=== PATIENT | male | born 1995 | race Two or more races ===

== ENCOUNTER 2017-11-12 15:59 | Emergency (ER) | payer OTHER ==
[2017-11-12 16:05] VITALS: BMI 24.3
--- NOTE | 2017-11-12 17:00 | PDOC ---
History of Present Illness - General Chief Complaint: Nausea/Vomiting Stated Complaint: ABDOMINAL PAIN, VOMITING Time Seen by Provider: 11/12/17 16:13 - History of Present Illness Initial Comments: 11/12/17 16:55 22 yo M with no significant pmh who p/w vomitting. Patient reports acute onset of non bilious, non bloody emesis this AM x 5, decreased PO intake, and diffuse , crampy abdominal pain. 1 episode of loose, watery stool this AM. Aggravated with PO intake. Denies alleviators. Denies PO medication intake. Reports drinking alcohol and eating at friends house yesterday evening. Denies F/C, CP, SOB, abdominal pain, constipation, urinary complaints, weakness , lightheadedness, sensory changes. PMHx: as noted above. Denies surgical history. ROS: as noted above SHx: Etoh use yesterday 1 beer at friends home. Denies recent traveling, hiking , camping, sick contacts, or pets. Denies tobacco or IVDA. Past History - Past Medical History Allergies/Adverse Reactions: Allergies Allergy/AdvReac Type Severity Reaction Status Date / Time No Allergy Information Allergy Verified 11/12/17 16:05 Available Home Medications: Ambulatory Orders Ondansetron HCl [Zofran] 4 mg PO PRN PRN 15 Days #30 tablet MDD 2 tab 11/12/17 COPD: No - Suicide/Smoking/Psychosocial Hx Smoking History: Never smoked Review of Systems - Review of Systems Comments:: 11/12/17 16:54 GENERAL/CONSTITUTIONAL: No fever or chills. No weakness. HEAD, EYES, EARS, NOSE AND THROAT: No change in vision. No ear pain or discharge. No sore throat. CARDIOVASCULAR: No chest pain or shortness of breath RESPIRATORY: No cough, wheezing, or hemoptysis. GASTROINTESTINAL: + nausea, vomiting, diarrhea. No constipation. GENITOURINARY: No dysuria, frequency, or change in urination. MUSCULOSKELETAL: No joint or muscle swelling or pain. No neck or back pain. SKIN: No rash NEUROLOGIC: No headache, vertigo, loss of consciousness, or change in strength/ sensation. ENDOCRINE: No increased thirst. No abnormal weight change HEMATOLOGIC/LYMPHATIC: No anemia, easy bleeding, or history of blood clots. ALLERGIC/IMMUNOLOGIC: No hives or skin allergy. *Physical Exam - Vital Signs Last Vital Signs Temp Pulse Resp BP Pulse Ox 98.1 F 87 18 142/92 99 11/12/17 16:01 11/12/17 16:01 11/12/17 16:01 11/12/17 16:01 11/12/17 16:01 - Physical Exam Comments: 11/12/17 16:55 GENERAL: Awake, alert, and fully oriented, in no acute distress HEAD: No signs of trauma, normocephalic, atraumatic EYES: PERRLA, EOMI, sclera anicteric, conjunctiva clear ENT: Hearing grossly normal, nares patent, oropharynx clear without exudates. Moist mucosa NECK: Normal ROM, supple, no lymphadenopathy, JVD, or masses LUNGS: No distress, speaks full sentences, clear to auscultation bilaterally HEART: Regular rate and rhythm, normal S1 and S2, no murmurs, rubs or gallops, peripheral pulses normal and equal bilaterally. ABDOMEN: Soft, nontender, normoactive bowel sounds. No guarding, no rebound. No masses. Neg CVA ttp. EXTREMITIES : Normal inspection, Normal range of motion, no edema. No clubbing or cyanosis. SKIN: Warm, Dry, normal turgor, no rashes or lesions noted ED Treatment Course - LABORATORY CBC & Chemistry Diagram: 11/12/17 17:10 11/12/17 17:10 Medical Decision Making - Medical Decision Making 11/12/17 18:00 22 yo M with no significant pmh who p/w vomiting, loose watery stool, and generalized abdominal x 1 day. VSS, AF, A&Ox3. Abdominal exam unremarkable. Patient presentation most likely 2/2 acute gastroenteritis, vs. less likely biliary pathology, vascular pathology, colitis, diverticulitis, appendicitis, or urinary pathology ( pyelonephritis, nephrolithiais). Will assess for electrolyte abnml, toxic or metabolic derangements,acid-base disturbances, or underlying infection. Anti-emetic control, IVF resuscitate, and pain control. ED Course: CBC, CMP, Lipase UA, Urine Cx. Zofran, Famotidine, Tylenol, NS 11/12/17 18:03 WBC: 15. 6 CMP: Unremarkable UA: Neg 11/12/17 18:56 Patient tolerating PO intake and symptoms improved. Discharge with zofran sent to pharmacy. F/u with PMD with return precautions. *DC/Admit/Observation/Transfer Diagnosis at time of Disposition: Abdominal pain with vomiting - Discharge Dispostion Disposition: HOME Decision to Admit order: No - Prescriptions Prescriptions: Ondansetron HCl [Zofran] 4 mg PO PRN PRN 15 Days #30 tablet MDD 2 tab PRN Reason: Nausea - Referrals Referrals: Soumya Mena [Primary Care Provider] - - Patient Instructions Printed Discharge Instructions: DI for Vomiting -- Adult Additional Instructions: Please return to the emergency department with any new or worsening symptoms or concerns. Please follow up with your primary care physician within 72 hours. Please take Zofran as needed for nausea and vomiting up to two times per day. - Post Discharge Activity - Attestations Physician Attestion: 11/12/17 18:55 I attest to the information provided in this note.
[2017-11-12] MEDS ORDERED: ACETAMINOPHEN 1000 MG/100 ML VIAL (NON FORMULARY) IVPB ONE (17:08)
[2017-11-12] MEDS ORDERED: MAG HYDROX/AL HYDROX/SIMETH 30 ML UNIT-DOSE CUP PO ONE (17:08)
[2017-11-12] MEDS ORDERED: SODIUM CHLORIDE 1,000 ML IV STA (17:08)
[2017-11-12] MEDS ORDERED: ONDANSETRON 4 MG/2 ML VIAL IVPB ONE (17:08)
[2017-11-12] MEDS ORDERED: FAMOTIDINE IV 20 MG/12 ML VIAL IVPUSH ONE (17:08)
[2017-11-12 17:14] LABS: BASO % 0.2 % (0-2.0); EOS % 0.2 % (0-4.5); HEMATOCRIT 50.8 % (35.4-49); HEMOGLOBIN 16.7 GM/dL (11.7-16.9); MEAN CELL VOLUME 78.9 fl (80-96); MEAN PLT VOLUME 9.4 fl (7.5-11.1); MONO % 8.8 % (3.8-10.2); NEUT % 82.8 % (42.8-82.8); PLATELET COUNT 290 K/MM3 (134-434); RBC 6.44 M/mm3 (4.00-5.60); RDW 13.3 % (11.9-15.9); WHITE BLOOD COUNT 15.6 K/mm3 (4.0-10.0)
[2017-11-12] MEDS ORDERED: MAG HYDROX/AL HYDROX/SIMETH 30 ML UNIT-DOSE CUP ONE (17:16)
[2017-11-12] MEDS ORDERED: ACETAMINOPHEN INJECTION 100 ML IVPB ONE (17:16)
[2017-11-12] MEDS ORDERED: ONDANSETRON 4 MG/2 ML VIAL ONE (17:16)
[2017-11-12] MEDS ORDERED: FAMOTIDINE 20 MG/50 ML IVPB 20 MG/50 ML MG IVPB ONE (17:16)
[2017-11-12 17:26] LABS: URINE APPEARANCE CLEAR; URINE BILIRUBIN NEGATIVE (<2.0 mg/dL); URINE COLOR YELLOW; URINE GLUCOSE (UA) NEGATIVE (NEGATIVE); URINE KETONE TRACE (NEGATIVE); URINE LEUK ESTERASE NEGATIVE (NEGATIVE); URINE NITRITE NEGATIVE (NEGATIVE); URINE PROTEIN NEGATIVE (NEGATIVE); URINE UROBILINOGEN NEGATIVE mg/dL (0.2-1.0)
[2017-11-12 17:49] LABS: ALBUMIN 4.8 g/dl (3.4-5.0); ANION GAP 10 (8-16); BILIRUBIN,TOTAL 0.7 mg/dL (0.2-1.0); BLOOD UREA NITROGEN 8 mg/dL (7-18); CALCIUM 9.4 mg/dL (8.5-10.1); CHLORIDE 106 mmol/L (98-107); CO2 23 mmol/L (21-32); CREATININE 0.9 mg/dL (0.7-1.3); GLUCOSE,RANDOM 107 mg/dL (74-106); POTASSIUM 4.1 mmol/L (3.5-5.1); SGOT/AST 37 U/L (15-37); SGPT/ALT 100 U/L (12-78); SODIUM 139 mmol/L (136-145); TOT PROT 8.2 g/dl (6.4-8.2)
[2017-11-12 17:50] LABS: ALK PHOS 81 U/L (45-117)
--- NOTE | 2017-11-12 17:51 | PDOC ---
Attending Attestation - Resident Resident Name: Tavon Baugh - ED Attending Attestation I have performed the following: I have examined & evaluated the patient, The case was reviewed & discussed with the resident, I agree w/resident's findings & plan, Exceptions are as noted - HPI HPI: 11/12/17 17:51 22 yo vomiting ,diarrhea since this am. Pt also was drinking alcohol last night 11/12/17 17:52 11/12/17 18:32 slender 22 yo male with no significant pat medical or surgical history head ncat neck supple lungs cta b/l cvs [id number] abd flat,nontrender ext no edema neuro ambulatory ,no focal neuro deficits - Physicial Exam PE: 11/12/17 18:01 wnwd 22 yo male head ncat lungs cta b/l cvs [id number] abd nontender ext no e/c/c skin warm and dry neuro axox3 - Medical Decision Making 11/12/17 18:35 pt feels much better, no abd pain and does not feel nauseated now
[2017-11-12 19:21] VITALS: BP 118/74; PULSE 84; TEMP 97.8
== END 2017-11-12 19:00 | disposition home or self-care (01) ==
LOC: JER 15:59
PROC: 3E033GC Introduction of Other Therapeutic Substance into Peripheral Vein, Percutaneous Approach (ICD-10-PCS; principal; 2017-11-12)
PROC: 3E033GC Introduction of Other Therapeutic Substance into Peripheral Vein, Percutaneous Approach (ICD-10-PCS; 2017-11-12)
PROC: 3E033GC Introduction of Other Therapeutic Substance into Peripheral Vein, Percutaneous Approach (ICD-10-PCS; 2017-11-12)
DX: R10.84 Generalized abdominal pain (principal)
CPT/HCPCS: 36415; 80053; 81003; 83690; 85025; 87086; 96374; 96375; 99282-25; J0131; J7030

== ENCOUNTER 2018-08-04 12:37 | Emergency (ER) | payer OTHER ==
[2018-08-04 12:51] VITALS: BP 91/61; PULSE 110; TEMP 99.6; BMI 30.4
--- NOTE | 2018-08-04 13:37 | PDOC ---
History of Present Illness - General Chief Complaint: Respiratory Stated Complaint: COLD SYMPTOMS Time Seen by Provider: 08/04/18 13:20 History Source: Patient Exam Limitations: No Limitations - History of Present Illness Initial Comments: 08/04/18 13:27 States onset of fevers, moist nonproductive cough, body aches, runny nose and sore throat pain 2 days. Timing/Duration: reports: just prior to arrival Past History - Travel Traveled outside of the country in the last 30 days: No Close contact w/someone who was outside of country & ill: No - Past Medical History Allergies/Adverse Reactions: Allergies Allergy/AdvReac Type Severity Reaction Status Date / Time No Allergy Information Allergy Verified 08/04/18 12:51 Available Home Medications: Ambulatory Orders Oseltamivir Phosphate [Tamiflu -] 75 mg PO BID #10 capsule 08/04/18 COPD: No - Suicide/Smoking/Psychosocial Hx Smoking History: Never smoked Review of Systems - Review of Systems Able to Perform ROS?: Yes Is the patient limited Mozambican proficient: Yes Constitutional: Yes: Symptoms Reported, See HPI, Fever, Malaise HEENTM: Yes: Symptoms Reported, See HPI, Nose Pain, Nose Congestion, Throat Pain Respiratory: Yes: Symptoms reported, See HPI, Cough. No: Wheezing Cardiac (ROS): No: Symptoms Reported Musculoskeletal: Yes: Symptoms Reported Integumentary: Yes: See HPI. No: Symptoms Reported All Other Systems: Reviewed and Negative *Physical Exam - Vital Signs Last Vital Signs Temp Pulse Resp BP Pulse Ox 99.6 F 110 H 20 91/61 100 08/04/18 12:45 08/04/18 12:45 08/04/18 12:45 08/04/18 12:45 08/04/18 12:45 - Physical Exam Comments: 08/04/18 13:37 GENERAL: [The child is awake, alert, and appropriately interactive.] EYES: [The pupils are equal, round, and reactive to light, with clear, conjunctiva.but glassy] NOSE: [The nose with clear drainage EARS: [The ear canals and tympanic membranes are congested but landmarks easily visualed ] THROAT: [The oropharynx is clear with erythema, no exudates. The mucous membranes are moist.] NECK: [The neck is supple with mildly tender adenopathy, no menigemous] CHEST: [The lungs are coarse but clear without crackles, or wheezes.] HEART: [Heart is regular rhythm, with normal S1 and S2, no murmurs.] ABDOMEN: [The abdomen is soft and nontender with normal bowel sounds. There is no organomegaly and no mass. There is no guarding or rebound.] EXTREMITIES: [Extremities are normal.] NEURO: [Behavior is normal for age.cranky but easily,m Tone is normal.] SKIN: [Skin is unremarkable without rash or swelling. There is no bruising, and there are no other signs of injury.] 08/04/18 13:41 General Appearance: Yes: Nourished, Appropriately Dressed HEENT: positive: TMs Normal Neck: positive: Tender, Supple. negative: Lymphadenopathy (R) Moderate Sedation - Procedure Monitoring Vital Signs: Procedure Monitoring Vital Signs Temperature 99.6 F 08/04/18 12:45 Pulse Rate 110 H 08/04/18 12:45 Respiratory Rate 20 08/04/18 12:45 Blood Pressure 91/61 08/04/18 12:45 O2 Sat by Pulse Oximetry (%) 100 08/04/18 12:45 Progress Note - Progress Note Progress Note: Upper respiratory infection, with clinical evidence of influenza. We'll treat with Tamiflu is within the window *DC/Admit/Observation/Transfer Diagnosis at time of Disposition: Influenzal acute upper respiratory infection - Discharge Dispostion Disposition: HOME Condition at time of disposition: Stable Decision to Admit order: No - Referrals - Patient Instructions Printed Discharge Instructions: DI for Viral Upper Respiratory Infection -- Adult Additional Instructions: Rest, drink lots of fluids: Teas, water, soups, Pedialyte Saltwater gargles Steamy showers/seem to face break up mucus Old-fashioned treatments help! Avoid contact with others until fevers and cough resolved as this is very contagious Lots of handwashing and good hygiene Continue [id number] medications for symptomatic relief Tylenol or Motrin for fever and pain Take all of Tamiflu as directed: 1 tab every 12 hours for 5 days Followup with private physician in one to 2 days as needed or if worsening Return to emergency department for worsened symptoms, fevers, dehydration Influenza takes between 5 and 7 days for resolution To not participate in any activity, work, or school until fevers and cough are gone for at least one day - Post Discharge Activity Forms/Work/School Notes: Back to Work
== END 2018-08-04 13:45 | disposition home or self-care (01) ==
LOC: JERFT 12:37
DX: J11.1 Influenza due to unidentified influenza virus with other respiratory manifestations (principal)
CPT/HCPCS: 99281-25

== ENCOUNTER 2019-01-18 11:26 | Inpatient (IN) | payer OTHER ==
[2019-01-18] MEDS ORDERED: SODIUM CHLORIDE 0.9% 1000 ML INFUS.BAG IV ONE ×2 (11:44→12:27)
[2019-01-18 12:14] LABS: BASO % 0.3 % (0-2.0); EOS % 2.1 % (0-4.5); HEMATOCRIT 51.3 % (35.4-49); HEMOGLOBIN 18.1 GM/dL (11.7-16.9); LYMPH % 30.9 % (8-40); MCH 27.1 pg (25.7-33.7); MCHC 35.2 g/dl (32.0-35.9); MEAN PLT VOLUME 10.1 fl (7.5-11.1); MONO % 11.1 % (3.8-10.2); NEUT % 55.6 % (42.8-82.8); PLATELET COUNT 323 K/MM3 (134-434); RBC 6.66 M/mm3 (4.00-5.60); RDW 12.7 % (11.9-15.9); WHITE BLOOD COUNT 4.5 K/mm3 (4.0-10.0)
[2019-01-18 12:16] LABS: INR 1.03 (0.83-1.09); PROTHROMBIN TIME (PATIENT) 12.1 SEC (9.7-13.0)
[2019-01-18 12:29] LABS: ALBUMIN 4.9 g/dl (3.4-5.0); ALK PHOS 111 U/L (45-117); ANION GAP 13 MMOL/L (8-16); BILIRUBIN,TOTAL 1.6 mg/dL (0.2-1); BLOOD UREA NITROGEN 14.1 mg/dL (7-18); CALCIUM 10.3 mg/dL (8.5-10.1); CHLORIDE 102 mmol/L (98-107); CO2 25 mmol/L (21-32); POTASSIUM 5.3 mmol/L (3.5-5.1); SGOT/AST 32 U/L (15-37); SGPT/ALT 57 U/L (13-61); SODIUM 140 mmol/L (136-145); TOT PROT 8.8 g/dl (6.4-8.2)
[2019-01-18] MEDS ORDERED: SODIUM CHLORIDE 1,000 ML IV STA (12:32)
[2019-01-18 12:35] LABS: GLUCOSE,RANDOM 378 mg/dL (74-106)
[2019-01-18 12:43] LABS: ACETONE SERUM POSITIVE SMALL 1+ (NEGATIVE)
--- NOTE | 2019-01-18 12:54 | PDOC ---
History of Present Illness - General Chief Complaint: Weakness Stated Complaint: DEHYDRATION Time Seen by Provider: 01/18/19 11:42 History Source: Patient Exam Limitations: No Limitations - History of Present Illness Initial Comments: 01/18/19 12:52 23M with no PMH presents to the ER with complaints of weakness and dehydration. The patient states that over the past 3 weeks, he's been feeling more and more thirsty, drinking more and more water, as well as having frequent urination. He denies dysuria, hematuria, family hx of diabetes, recent illness or stressors, CP, SOB, fever, chills, nausea, or vomiting. He denies abd pain. He has never had this before. Past History - Past Medical History Allergies/Adverse Reactions: Allergies Allergy/AdvReac Type Severity Reaction Status Date / Time aspirin Allergy Verified 01/18/19 11:38 Home Medications: Ambulatory Orders NK [No Known Home Medication] 01/18/19 COPD: No Diabetes: Yes (UNSURE) - Suicide/Smoking/Psychosocial Hx Smoking History: Never smoked Hx Alcohol Use: No Drug/Substance Use Hx: No Review of Systems - Review of Systems Able to Perform ROS?: Yes Comments:: 01/18/19 12:53 GENERAL/CONSTITUTIONAL: No fever or chills. No weakness. HEAD, EYES, EARS, NOSE AND THROAT: No change in vision. No ear pain or discharge. No sore throat. CARDIOVASCULAR: No chest pain, palpitations, or lightheadedness. RESPIRATORY: No cough, wheezing, shortness of breath, or hemoptysis. GASTROINTESTINAL: No abdominal pain, nausea, vomiting, diarrhea, or constipation. GENITOURINARY: No dysuria, frequency, hematuria, or change in urination. MUSCULOSKELETAL: No joint or muscle swelling or pain. No neck or back pain. SKIN: No rash or lesions. NEUROLOGIC: No headache, numbness, tingling, focal weakness, loss of consciousness, or change in strength/sensation. ENDOCRINE: + for increased thirst and weight loss. HEMATOLOGIC/LYMPHATIC: No anemia, easy bleeding, or history of blood clots. ALLERGIC/IMMUNOLOGIC: No hives or skin allergy. Is the patient limited Croatian proficient: No *Physical Exam - Vital Signs Last Vital Signs Temp Pulse Resp BP Pulse Ox 98.6 F 58 L 19 128/83 99 01/18/19 11:50 01/18/19 11:50 01/18/19 11:50 01/18/19 11:50 01/18/19 11:50 - Physical Exam Comments: 01/18/19 12:53 GENERAL: Well developed, well nourished. Awake and alert. No acute distress. HEENT: Normocephalic, atraumatic. Hearing grossly normal. Moist mucous membranes. PERRLA, EOMI. No conjunctival pallor. Sclera are non-icteric. NECK: Supple. Full ROM. No JVD. CARDIOVASCULAR: Regular rate and rhythm. No murmurs, rubs, or gallops. PULMONARY: No evidence of respiratory distress. Lungs clear to auscultation bilaterally. No wheezing, rales or rhonchi. ABDOMINAL: Soft. Non-tender. Non-distended. No rebound or guarding. GENITOURINARY: No CVA tenderness bilaterally. MUSCULOSKELETAL: Normal range of motion at all joints. No bony deformities or tenderness. EXTREMITIES: No cyanosis. No clubbing. No edema. No calf tenderness or swelling. SKIN: Warm and dry. Normal capillary refill. No rashes. No jaundice. NEUROLOGICAL: Alert, awake, appropriate. Cranial nerves 2-12 grossly intact. Normal speech. Gait is normal without ataxia. PSYCHIATRIC: Cooperative. Good eye contact. Appropriate mood and affect. ED Treatment Course - LABORATORY CBC & Chemistry Diagram: 01/18/19 11:48 01/18/19 11:48 - ADDITIONAL ORDERS Additional order review: Laboratory Results 01/18/19 01/18/19 01/18/19 11:48 11:48 11:48 PT with INR 12.10 INR 1.03 Sodium 140 Potassium 5.3 H Chloride 102 Carbon Dioxide 25 Anion Gap 13 BUN 14.1 Creatinine 1.0 Est GFR (CKD-EPI)AfAm 124.14 Est GFR (CKD-EPI)NonAf 107.11 Random Glucose 378 H* Calcium 10.3 H Total Bilirubin 1.6 H AST 32 ALT 57 Alkaline Phosphatase 111 Creatine Kinase 126 Total Protein 8.8 H Albumin 4.9 Acetone, Qual Positive small 1+ 01/18/19 11:48 RBC 6.66 H MCV 77.0 L MCHC 35.2 RDW 12.7 MPV 10.1 Neutrophils % 55.6 D Lymphocytes % 30.9 D Monocytes % 11.1 H Eosinophils % 2.1 D Basophils % 0.3 - Medications Given in the ED: ED Medications Discontinued Medications Generic Name Dose Route Start Last Admin Trade Name Kusum PRN Reason Stop Dose Admin Sodium Chloride 1,000 ml 01/18/19 11:44 01/18/19 11:57 Normal Saline - IV 01/18/19 11:45 1,000 ml ONCE ONE Administration Medical Decision Making - Medical Decision Making 01/18/19 12:53 23M with no PMH who presents with polyuria, polydipsia, and weight loss, concerning for new onset diabetes. Pt is requesting "lots and lots of water". Will obtain labs including VBG and acetone and will hydrate pt. Pending labs and imaging. 01/18/19 13:19 Labs indicate new onset diabetes w/o DKA (no gap, normal pH). Will admit for new onset diabetes. Pt endorsed to Dr. Majano for admission. *DC/Admit/Observation/Transfer Diagnosis at time of Disposition: Diabetes mellitus, new onset - Discharge Dispostion Condition at time of disposition: Guarded Decision to Admit order: Yes - Referrals Referrals: Soumya Mena [Primary Care Provider] - - Patient Instructions - Post Discharge Activity
[2019-01-18 13:00] LABS: URINE APPEARANCE CLEAR; URINE BILIRUBIN NEGATIVE (NEGATIVE); URINE COLOR YELLOW; URINE GLUCOSE (UA) 3+ (NEGATIVE); URINE KETONE 3+ (NEGATIVE); URINE LEUK ESTERASE TRACE (NEGATIVE); URINE NITRITE NEGATIVE (NEGATIVE); URINE PROTEIN 2+ (NEGATIVE); URINE UROBILINOGEN 0.2 mg/dL (0.2-1.0)
[2019-01-18] MEDS ORDERED: INSULIN REGULAR HUMAN 100 UNITS/ML *VIAL SQ ONE (13:03)
--- NOTE | 2019-01-18 13:07 | PDOC ---
Documentation entered by Betty Eddy SCRIBE, acting as scribe for Onesimo Carbone MD. Onesimo Carbone MD: This documentation has been prepared by the Surjit mock Brenda, SCRIBE, under my direction and personally reviewed by me in its entirety. I confirm that the documentation accurately reflects all work, treatment, procedures, and medical decision making performed by me. Attending Attestation - Resident Resident Name: Elvis Lewis - ED Attending Attestation I have performed the following: I have examined & evaluated the patient, The case was reviewed & discussed with the resident, I agree w/resident's findings & plan, Exceptions are as noted - HPI HPI: 01/18/19 12:34 The patient is a 23 year old male, with no significant PMH who presents to the emergency department with 3 weeks of weakness and feelings of dehydration. The patient reports that he has been drinking fluids more often and urinating more frequently, but has still been feeling dehydrated. He also notes that in early November, he weighed himself to be 190 lbs and yesterday he was 167 lbs, and when testing his blood glucose yesterday he was found to be at 369. The patient denies a change in appetite. Denies blurry visions, chest pain, shortness of breath, headache and dizziness. Denies fever, nausea, vomiting, diarrhea and constipation. Denies dysuria and hematuria. Denies any other symptoms. Allergies: Aspirin Past surgical history: Denies any surgical history. PCP: Soumya Mena - Physicial Exam PE: 01/18/19 12:35 GENERAL: Awake, alert, and fully oriented, in no acute distress HEAD: No signs of trauma EYES: PERRLA, EOMI, sclera anicteric, conjunctiva clear ENT: (+) Dry mucous membranes. Auricles normal inspection, hearing grossly normal, nares patent. NECK: Normal ROM, supple, no lymphadenopathy, JVD, or masses LUNGS: Breath sounds equal, clear to auscultation bilaterally. No wheezes, and no crackles HEART: Regular rate and rhythm, normal S1 and S2, no murmurs, rubs or gallops ABDOMEN: Soft, nontender. No guarding, no rebound. No masses EXTREMITIES: Normal range of motion, no edema. No clubbing or cyanosis. No cords, erythema, or tenderness NEUROLOGICAL: Cranial nerves II through XII grossly intact. Normal speech. SKIN: Warm, Dry, normal turgor, no rashes or lesions noted. - Medical Decision Making 01/18/19 13:06 A portion of this note was written by my scribe, under my supervision. Vital Signs Temp Pulse Resp BP Pulse Ox 98.6 F 58 L 19 128/83 99 01/18/19 11:50 01/18/19 11:50 01/18/19 11:50 01/18/19 11:50 01/18/19 11:50 23 year old M presents with hyperglycemia. CBC, BMP 01/18/19 11:48 01/18/19 11:48 CMP Sodium 140 mmol/L (136-145) 01/18/19 11:48 Potassium 5.3 mmol/L (3.5-5.1) H 01/18/19 11:48 Chloride 102 mmol/L (98-107) 01/18/19 11:48 Carbon Dioxide 25 mmol/L (21-32) 01/18/19 11:48 Anion Gap 13 MMOL/L (8-16) 01/18/19 11:48 BUN 14.1 mg/dL (7-18) 01/18/19 11:48 Creatinine 1.0 mg/dL (0.55-1.3) 01/18/19 11:48 Est GFR (CKD-EPI)AfAm 124.14 01/18/19 11:48 Est GFR (CKD-EPI)NonAf 107.11 01/18/19 11:48 Random Glucose 378 mg/dL (74-106) H* 01/18/19 11:48 Calcium 10.3 mg/dL (8.5-10.1) H 01/18/19 11:48 Total Bilirubin 1.6 mg/dL (0.2-1) H 01/18/19 11:48 AST 32 U/L (15-37) 01/18/19 11:48 ALT 57 U/L (13-61) 01/18/19 11:48 Alkaline Phosphatase 111 U/L (45-117) 01/18/19 11:48 Creatine Kinase 126 U/L (26-308) 01/18/19 11:48 Total Protein 8.8 g/dl (6.4-8.2) H 01/18/19 11:48 Albumin 4.9 g/dl (3.4-5.0) 01/18/19 11:48 No elevated AG but elevated glucose. Will not treat as DKA. Pt with newly diagnosed diabetes, likely type 1 vs type 2. Insulin and admission to the hospital. Heart Score/ECG Review #1 ECG reviewed & interpreted by me at: 12:35 01/18/19 12:58 NSR 51, no std/eloisa, TWI III, no brugada, no HOCM, no WPW, QTC 412 msec
[2019-01-18 13:17] LABS: VENOUS PC02 47.1 mmHg (41-51); VENOUS PH 7.35 (7.31-7.41); VENOUS PO2 51.1 mmHg (30-40)
[2019-01-18] MEDS ORDERED: INSULIN REGULAR HUMAN 100 UNITS/ML *VIAL ONE (13:30)
[2019-01-18 14:04] LABS: EPI CELLS 2.6 /HPF (0-5/HPF); HYALINE CASTS 2.61 /lpf (0-8); URINE BACTERIA 3.4 /hpf (NEGATIVE); URINE RBC 6.2 /hpf (0-4); URINE WBC 33.1 /hpf (0-5)
--- NOTE | 2019-01-18 15:09 | HP ---
Admitting History and Physical - Admission Chief Complaint: came in for polydipsia and polyuria for 3 weeks History of Present Illness: The patient is a 23 year old male, with no significant PMH who presents to the emergency department with 3 weeks of weakness and feelings of dehydration. The patient reports that he has been drinking fluids more often and urinating more frequently, but has still been feeling dehydrated. He also notes that in early November, he weighed himself to be 190 lbs and yesterday he was 167 lbs, and when testing his blood glucose yesterday he was found to be at 369. The patient denies a change in appetite. Denies blurry visions, chest pain, shortness of breath, headache and dizziness. Denies fever, nausea, vomiting, diarrhea and constipation. Denies dysuria and hematuria. Denies any other symptoms. Allergies: Aspirin in ER foudn to have bgm in 300 and ketones in urine got ivf and 5 units of insulin History Source: Patient - Smoking History Smoking history: Never smoked - Alcohol/Substance Use Hx Alcohol Use: No Home Medications - Allergies Allergies/Adverse Reactions: Allergies Allergy/AdvReac Type Severity Reaction Status Date / Time aspirin Allergy Verified 01/18/19 11:38 - Home Medications Home Medications: Ambulatory Orders NK [No Known Home Medication] 01/18/19 Family Disease History - Family Disease History Family Disease History: Diabetes: Mother Physical Examination Vital Signs: Vital Signs Temperature 98.6 F 01/18/19 11:50 Pulse Rate 65 01/18/19 13:49 Respiratory Rate 18 01/18/19 13:49 Blood Pressure 118/66 01/18/19 13:49 O2 Sat by Pulse Oximetry (%) 98 01/18/19 13:49 Labs: CBC, BMP 01/18/19 11:48 01/18/19 11:48 Problem List - Problems (1) Diabetes mellitus, new onset Assessment/Plan: ivf metformin bid endocrine consult bgm sliding scale diabetic diet cbc is indicative of dehydration and so is the K 5.3 will repeat labs early ambulation Code(s): E11.9 - TYPE 2 DIABETES MELLITUS WITHOUT COMPLICATIONS
--- NOTE | 2019-01-18 15:18 | CONSULT ---
Consult Consult Specialty:: endocrine Referred by:: dr.saba ruiz Reason for Consultation:: new onset dm2 - History of Present Illness Chief Complaint: high sugars weight loss History of Present Illness: 23M with no PMH presents to the ER with complaints of weakness and dehydration. The patient states that over the past 3 weeks, he's been feeling more and more thirsty, drinking more and more water, as well as having frequent urination. He denies dysuria, hematuria, family hx of diabetes, recent illness or stressors, CP, SOB, fever, chills, nausea, or vomiting.his mom has dm and controlling it with diet and pills,he has been losing weight and is unsure why was told it was from hot weather.he lost close to 15 lbs. - Alcohol/Substance Use Hx Alcohol Use: No - Smoking History Smoking history: Never smoked Home Medications - Allergies Allergies/Adverse Reactions: Allergies Allergy/AdvReac Type Severity Reaction Status Date / Time aspirin Allergy Verified 01/18/19 11:38 - Home Medications Home Medications: Ambulatory Orders NK [No Known Home Medication] 01/18/19 Family Disease History - Family Disease History Family Disease History: Diabetes: Mother Review of Systems - Review of Systems Constitutional: reports: Lethargy, Loss of Appetite, Weakness Eyes: reports: Blurred Vision HENT: reports: No Symptoms Neck: reports: No Symptoms Cardiovascular: reports: No Symptoms Respiratory: reports: No Symptoms Gastrointestinal: reports: No Symptoms Genitourinary: reports: Frequency Breasts: reports: No Symptoms Reported Musculoskeletal: reports: No Symptoms Integumentary: reports: No Symptoms Neurological: reports: No Symptoms Physical Exam Vital Signs: Vital Signs Temperature 98.6 F 01/18/19 11:50 Pulse Rate 65 01/18/19 13:49 Respiratory Rate 18 01/18/19 13:49 Blood Pressure 118/66 01/18/19 13:49 O2 Sat by Pulse Oximetry (%) 98 01/18/19 13:49 Constitutional: Yes: Anxious Eyes: Yes: EOM Intact HENT: Yes: Normocephalic Neck: Yes: Trachea Midline Cardiovascular: Yes: Regular Rate and Rhythm Respiratory: Yes: CTA Bilaterally Gastrointestinal: Yes: Normal Bowel Sounds ...Rectal Exam: Yes: Deferred Renal/: Yes: WNL Breast(s): Yes: WNL Musculoskeletal: Yes: WNL Extremities: Yes: WNL Edema: No Integumentary: Yes: WNL Neurological: Yes: Alert, Oriented Labs: CBC, BMP 01/18/19 11:48 01/18/19 11:48 Problem List - Problems (1) Diabetes mellitus, new onset Code(s): E11.9 - TYPE 2 DIABETES MELLITUS WITHOUT COMPLICATIONS (2) Influenzal acute upper respiratory infection Code(s): J11.1 - FLU DUE TO UNIDENTIFIED INFLUENZA VIRUS W OTH RESP MANIFEST Assessment/Plan Current Active Problems Diabetes mellitus, new onset (Acute) Abnormal Lab Results 01/18/19 01/18/19 01/18/19 11:48 11:48 12:34 RBC 6.66 H Hgb 18.1 H Hct 51.3 H MCV 77.0 L Monocytes % 11.1 H POC VBG pO2 VBG O2 Sat (Andi) Potassium 5.3 H Random Glucose 378 H* Calcium 10.3 H Total Bilirubin 1.6 H Total Protein 8.8 H Urine Protein 2+ H Urine Glucose (UA) 3+ H Urine Ketones 3+ H Urine Blood 1+ H 01/18/19 13:08 RBC Hgb Hct MCV Monocytes % POC VBG pO2 51.1 H VBG O2 Sat (Andi) 83.7 H Potassium Random Glucose Calcium Total Bilirubin Total Protein Urine Protein Urine Glucose (UA) Urine Ketones Urine Blood Laboratory Results - last 24 hr 01/18/19 01/18/19 01/18/19 11:48 11:48 11:48 WBC 4.5 RBC 6.66 H Hgb 18.1 H Hct 51.3 H MCV 77.0 L MCH 27.1 MCHC 35.2 RDW 12.7 Plt Count 323 MPV 10.1 Absolute Neuts (auto) 2.5 Neutrophils % 55.6 D Lymphocytes % 30.9 D Monocytes % 11.1 H Eosinophils % 2.1 D Basophils % 0.3 Nucleated RBC % 0 PT with INR INR VBG pH POC VBG pCO2 POC VBG pO2 VBG HCO3 VBG O2 Sat (Andi) VBG Base Excess Sodium 140 Potassium 5.3 H Chloride 102 Carbon Dioxide 25 Anion Gap 13 BUN 14.1 Creatinine 1.0 Est GFR (CKD-EPI)AfAm 124.14 Est GFR (CKD-EPI)NonAf 107.11 Random Glucose 378 H* Calcium 10.3 H Total Bilirubin 1.6 H AST 32 ALT 57 Alkaline Phosphatase 111 Creatine Kinase 126 Troponin I < 0.02 Total Protein 8.8 H Albumin 4.9 Urine Color Urine Appearance Urine pH Ur Specific Lolo Urine Protein Urine Glucose (UA) Urine Ketones Urine Blood Urine Nitrite Urine Bilirubin Urine Urobilinogen Ur Leukocyte Esterase Urine WBC (Auto) Urine RBC (Auto) Urine Casts (Auto) U Epithel Cells (Auto) Urine Bacteria (Auto) Acetone, Qual Positive small 1+ 01/18/19 01/18/19 01/18/19 11:48 12:34 13:08 WBC RBC Hgb Hct MCV MCH MCHC RDW Plt Count MPV Absolute Neuts (auto) Neutrophils % Lymphocytes % Monocytes % Eosinophils % Basophils % Nucleated RBC % PT with INR 12.10 INR 1.03 VBG pH 7.35 POC VBG pCO2 47.1 POC VBG pO2 51.1 H VBG HCO3 25.4 VBG O2 Sat (Andi) 83.7 H VBG Base Excess -0.2 Sodium Potassium Chloride Carbon Dioxide Anion Gap BUN Creatinine Est GFR (CKD-EPI)AfAm Est GFR (CKD-EPI)NonAf Random Glucose Calcium Total Bilirubin AST ALT Alkaline Phosphatase Creatine Kinase Troponin I Total Protein Albumin Urine Color Yellow Urine Appearance Clear Urine pH 5.0 Ur Specific Lolo 1.033 Urine Protein 2+ H Urine Glucose (UA) 3+ H Urine Ketones 3+ H Urine Blood 1+ H Urine Nitrite Negative Urine Bilirubin Negative Urine Urobilinogen 0.2 Ur Leukocyte Esterase Trace Urine WBC (Auto) 33.1 Urine RBC (Auto) 6.2 Urine Casts (Auto) 2.61 U Epithel Cells (Auto) 2.6 Urine Bacteria (Auto) 3.4 Acetone, Qual plan: bgm qid novolog scale hba1c diet nutrition levemir 20units daily metformin 1gm bid
[2019-01-18] MEDS: SODIUM CHLORIDE 1,000 ML IV SCH ×2 (15:30→23:47)
[2019-01-18 15:39] VITALS: BMI 26.1
[2019-01-18 17:24] LABS: BASO % 0.6 % (0-2.0); EOS % 1.6 % (0-4.5); HEMATOCRIT 39.7 % (35.4-49); HEMOGLOBIN 13.7 GM/dL (11.7-16.9); LYMPH % 32.8 % (8-40); MCH 26.7 pg (25.7-33.7); MCHC 34.6 g/dl (32.0-35.9); MEAN CELL VOLUME 77.4 fl (80-96); MEAN PLT VOLUME 10.2 fl (7.5-11.1); MONO % 7.8 % (3.8-10.2); NEUT % 57.2 % (42.8-82.8); PLATELET COUNT 220 K/MM3 (134-434); RBC 5.13 M/mm3 (4.00-5.60); RDW 12.6 % (11.9-15.9); WHITE BLOOD COUNT 5.1 K/mm3 (4.0-10.0)
[2019-01-18] MEDS: metFORMIN HCL 500 MG TABLET (FP) PO SCH (17:26)
[2019-01-18] MEDS: INSULIN SLIDING SCALE (NOVOLOG) 1 VIAL SQ SCH ×2 (17:36→21:23)
[2019-01-18 18:08] LABS: ALBUMIN 3.3 g/dl (3.4-5.0); BILIRUBIN,TOTAL 0.7 mg/dL (0.2-1); BLOOD UREA NITROGEN 11.2 mg/dL (7-18); CREATININE 0.9 mg/dL (0.55-1.3); POTASSIUM 3.8 mmol/L (3.5-5.1); TOT PROT 5.6 g/dl (6.4-8.2)
[2019-01-19] MEDS: metFORMIN HCL 500 MG TABLET (FP) PO SCH ×2 (06:22→17:24)
[2019-01-19] MEDS: INSULIN (LEVEMIR) 100 UNITS/ML UNITS SQ SCH (06:23)
[2019-01-19] MEDS: INSULIN SLIDING SCALE (NOVOLOG) 1 VIAL SQ SCH ×4 (06:24→22:16)
[2019-01-19 07:59] LABS: CHOLESTEROL 124 mg/dL (50-200); HDL CHOLESTEROL 23 mg/dL (40-60); TRIGLYCERIDES 155 mg/dL (0-150)
[2019-01-19] MEDS: SODIUM CHLORIDE 1,000 ML IV SCH ×2 (08:12→16:59)
--- NOTE | 2019-01-19 13:26 | PN ---
Progress Note, Physician - Current Medication List Current Medications: Active Medications Sodium Chloride (Normal Saline -) 1,000 mls @ 125 mls/hr IV ASDIR [facility] Last Admin: 01/19/19 08:12 Dose: 125 mls/hr Insulin Aspart (Novolog Vial Sliding Scale -) 1 vial SQ ACHS [facility]; Protocol Last Admin: 01/19/19 11:18 Dose: 6 unit Insulin Detemir (Levemir Vial) 20 units SQ AM [facility] Last Admin: 01/19/19 06:23 Dose: 20 units Metformin HCl (Glucophage -) 500 mg PO BID@0700,1630 [facility] Last Admin: 01/19/19 06:22 Dose: 500 mg - Objective Vital Signs: Vital Signs Temperature 97.7 F 01/19/19 06:00 Pulse Rate 55 L 01/19/19 06:00 Respiratory Rate 18 01/19/19 06:00 Blood Pressure 113/61 01/19/19 06:00 O2 Sat by Pulse Oximetry (%) 98 01/18/19 21:00 Cardiovascular: Yes: Regular Rate and Rhythm Respiratory: Yes: Regular, CTA Bilaterally Gastrointestinal: Yes: Normal Bowel Sounds, Soft Labs: CBC, BMP 01/18/19 16:40 01/18/19 16:40 INR, PTT INR 1.03 (0.83-1.09) 01/18/19 11:48 Problem List - Problems (1) Diabetes mellitus, new onset Assessment/Plan: ivf metformin bid endocrine consult bgm sliding scale diabetic diet cbc is indicative of dehydration and so is the K 5.3 will repeat labs early ambulation Code(s): E11.9 - TYPE 2 DIABETES MELLITUS WITHOUT COMPLICATIONS
--- NOTE | 2019-01-19 14:09 | PN ---
Progress Note (short form) - Note Progress Note: ID consult dictated imp/reccd 23 yo male admitted with new onset DM no signs UTI Urine culture less then 10K group b strep UA negative no need to treat management of DM per PMD please call back if needed
--- NOTE | 2019-01-19 14:46 | CONS ---
INFECTIOUS DISEASE CONSULTATION DATE OF CONSULTATION: DATE OF DICTATION: 01/19/2019 HISTORY: This is a 23-year-old man who came to the ER complaining of weakness. He reports polyuria and polydipsia for the last 3-4 weeks. He has been drinking more water but has continued to feel very weak and dehydrated. He complained of this to his mother, who recommended he come to the emergency room. He has lost about 15 -20 pounds in the last 4-6 weeks as well. He has no fevers or chills. He has no dysuria, no diarrhea, or constipation. He, otherwise, feels well. He is allergic to ASPIRIN. He was found to have a blood glucose of 300 in the ER and ketones in the urine. He got fluids and insulin and was admitted for further evaluation. PAST MEDICAL HISTORY: Unremarkable. ALLERGIES: He is allergic to ASPIRIN. MEDICATIONS: He takes no medications. FAMILY HISTORY: Apparently notable for diabetes in his mother. SOCIAL HISTORY: He lives with his mother and his girlfriend. He works as a tank truck driver. He smokes hookah occasionally. No cigarettes. Rare social alcohol. He denies any drug use. He is followed by Dr. Soumya Mena at [facility]. REVIEW OF SYSTEMS: Unremarkable. He is feeling currently quite well. He is eating. He never had nausea or vomiting. PHYSICAL EXAMINATION: Vital Signs: He is afebrile. Temperature 97.7, pulse is 55, blood pressure 113 /61, respiratory rate 18, saturating 98% on room air. HEENT: He has no thrush. Neck: Supple. Lungs: Clear to auscultation. Heart: Regular rate and rhythm. Abdomen: Soft, nontender. Extremities: Without edema. DIAGNOSTIC DATA: His white count is 5.1, hemoglobin on admission was 18, today is 13.7, platelets are 220, INR 1. His BUN 14, creatinine 1 on admission, today are BUN 11, creatinine 0.9. Glucose of 378 on admission with a hemoglobin A1C of 13. LFTs are normal. Urinalysis is notable for protein, glucose, ketones, and blood. Leukocyte esterase and nitrites were negative. His urine culture, less than 10, 000 group B streptococcus. In summary, this is a young man admitted with diabetes, new onset. He needs plenty of education. I doubt he has a UTI. No need for treatment. Please call back if needed. Deena [id number] MTDD
[2019-01-19 18:14] LABS: HYALINE CASTS 1 /lpf (0-8); URINE APPEARANCE CLEAR; URINE BACTERIA 9.3 /hpf (NEGATIVE); URINE BILIRUBIN NEGATIVE (NEGATIVE); URINE COLOR YELLOW; URINE GLUCOSE (UA) 3+ (NEGATIVE); URINE KETONE TRACE (NEGATIVE); URINE LEUK ESTERASE 1+ (NEGATIVE); URINE NITRITE NEGATIVE (NEGATIVE); URINE PROTEIN NEGATIVE (NEGATIVE); URINE RBC 0 /hpf (0-4); URINE WBC 6 /hpf (0-5)
[2019-01-20] MEDS: SODIUM CHLORIDE 1,000 ML IV SCH ×2 (00:30→08:47)
[2019-01-20] MEDS: metFORMIN HCL 500 MG TABLET (FP) PO SCH ×2 (06:41→17:00)
[2019-01-20] MEDS: INSULIN (LEVEMIR) 100 UNITS/ML UNITS SQ SCH (06:42)
[2019-01-20] MEDS: INSULIN SLIDING SCALE (NOVOLOG) 1 VIAL SQ SCH ×4 (06:42→23:41)
[2019-01-20 08:30] LABS: BASO % 0.6 % (0-2.0); EOS % 3.2 % (0-4.5); HEMATOCRIT 39.1 % (35.4-49); HEMOGLOBIN 13.3 GM/dL (11.7-16.9); LYMPH % 45.3 % (8-40); MCH 26.8 pg (25.7-33.7); MCHC 34.1 g/dl (32.0-35.9); MEAN CELL VOLUME 78.6 fl (80-96); MEAN PLT VOLUME 9.9 fl (7.5-11.1); MONO % 7.5 % (3.8-10.2); NEUT % 43.4 % (42.8-82.8); PLATELET COUNT 182 K/MM3 (134-434); RBC 4.97 M/mm3 (4.00-5.60); RDW 12.6 % (11.9-15.9); WHITE BLOOD COUNT 3.7 K/mm3 (4.0-10.0)
[2019-01-20 08:33] LABS: BILIRUBIN,TOTAL 0.7 mg/dL (0.2-1); BLOOD UREA NITROGEN 6.4 mg/dL (7-18); CALCIUM 8.4 mg/dL (8.5-10.1); CREATININE 0.6 mg/dL (0.55-1.3); TOT PROT 5.2 g/dl (6.4-8.2)
--- NOTE | 2019-01-20 10:49 | EKG ---
Test Reason : Blood Pressure : / mmHG Vent. Rate : 051 BPM Atrial Rate : 051 BPM P-R Int : 156 ms QRS Dur : 108 ms QT Int : 448 ms P-R-T Axes : -09 048 021 degrees QTc Int : 412 ms SINUS BRADYCARDIA WITH SINUS ARRHYTHMIA EARLY REPOLARIZATION OTHERWISE NORMAL ECG NO PREVIOUS ECGS AVAILABLE Confirmed by DIXON ALONZO MD ([id number]) on 01/20/2019 10:49:43 AM Referred By: Confirmed By:DIXON ALONZO MD
--- NOTE | 2019-01-20 11:27 | PN ---
Progress Note, Physician - Current Medication List Current Medications: Active Medications Sodium Chloride (Normal Saline -) 1,000 mls @ 125 mls/hr IV ASDIR [facility] Last Admin: 01/20/19 08:47 Dose: 125 mls/hr Insulin Aspart (Novolog Vial Sliding Scale -) 1 vial SQ ACHS [facility]; Protocol Last Admin: 01/20/19 06:42 Dose: Not Given Insulin Detemir (Levemir Vial) 20 units SQ AM [facility] Last Admin: 01/20/19 06:42 Dose: 20 units Metformin HCl (Glucophage -) 500 mg PO BID@0700,1630 [facility] Last Admin: 01/20/19 06:41 Dose: 500 mg - Objective Vital Signs: Vital Signs Temperature 98.4 F 01/20/19 06:00 Pulse Rate 62 01/20/19 06:00 Respiratory Rate 18 01/20/19 06:00 Blood Pressure 105/54 L 01/20/19 06:00 O2 Sat by Pulse Oximetry (%) 98 01/19/19 21:00 Cardiovascular: Yes: Regular Rate and Rhythm Respiratory: Yes: Regular, CTA Bilaterally Gastrointestinal: Yes: Normal Bowel Sounds, Soft Labs: CBC, BMP 01/20/19 07:13 01/20/19 07:22 INR, PTT INR 1.03 (0.83-1.09) 01/18/19 11:48 Problem List - Problems (1) Diabetes mellitus, new onset Assessment/Plan: DC ivf metformin bid endocrine consult bgm sliding scale diabetic diet cbc is indicative of dehydration and so is the K 5.3 will repeat labs early ambulation Diabetic Teaching--on diet insulin Code(s): E11.9 - TYPE 2 DIABETES MELLITUS WITHOUT COMPLICATIONS
--- NOTE | 2019-01-20 15:11 | PN ---
Progress Note, Physician Chief Complaint: has better control of diet yet sugars elevated - Current Medication List Current Medications: Active Medications Insulin Aspart (Novolog Vial Sliding Scale -) 1 vial SQ ACHS [facility]; Protocol Last Admin: 01/20/19 12:09 Dose: Not Given Insulin Detemir (Levemir Vial) 20 units SQ AM [facility] Last Admin: 01/20/19 06:42 Dose: 20 units Metformin HCl (Glucophage -) 1,000 mg PO BID@0700,1630 [facility] Sitagliptin Phosphate (Januvia -) 100 mg PO DAILY@0700 [facility] - Objective Vital Signs: Vital Signs Temperature 98.5 F 01/20/19 14:07 Pulse Rate 65 01/20/19 14:07 Respiratory Rate 18 01/20/19 14:07 Blood Pressure 119/54 L 01/20/19 14:07 O2 Sat by Pulse Oximetry (%) 99 01/20/19 10:00 Constitutional: Yes: Calm Eyes: Yes: EOM Intact HENT: Yes: Normocephalic Neck: Yes: Trachea Midline Cardiovascular: Yes: Regular Rate and Rhythm Respiratory: Yes: CTA Bilaterally Gastrointestinal: Yes: Normal Bowel Sounds ...Rectal Exam: Yes: Deferred Genitourinary: Yes: WNL Breast(s): Yes: WNL Musculoskeletal: Yes: WNL Extremities: Yes: WNL Integumentary: Yes: WNL Neurological: Yes: Alert, Oriented Labs: CBC, BMP 01/20/19 07:13 01/20/19 07:22 INR, PTT INR 1.03 (0.83-1.09) 01/18/19 11:48 Problem List - Problems (1) Diabetes mellitus, new onset Code(s): E11.9 - TYPE 2 DIABETES MELLITUS WITHOUT COMPLICATIONS (2) Influenzal acute upper respiratory infection Code(s): J11.1 - FLU DUE TO UNIDENTIFIED INFLUENZA VIRUS W OTH RESP MANIFEST Assessment/Plan Current Active Problems Diabetes mellitus, new onset (Acute) uti hyperglycemia Abnormal Lab Results 01/19/19 01/20/19 01/20/19 15:00 07:13 07:22 WBC 3.7 L MCV 78.6 L Lymphocytes % 45.3 H D Chloride 108 H Anion Gap 3 L BUN 6.4 L Random Glucose 148 H Calcium 8.4 L Total Protein 5.2 L Albumin 3.0 L Urine Glucose (UA) 3+ H Urine Ketones Trace H Ur Leukocyte Esterase 1+ H Laboratory Tests 01/18/19 01/18/19 01/19/19 17:21 21:22 06:21 POC Glucometer 374 287 192 01/19/19 11:15 POC Glucometer 348 plan: januvia 100mg day metformin 1gm bid levemir 20 units per day may add sulfonurea as op
[2019-01-21] MEDS: INSULIN SLIDING SCALE (NOVOLOG) 1 VIAL SQ SCH ×3 (06:55→17:49)
[2019-01-21] MEDS: metFORMIN HCL 500 MG TABLET (FP) PO SCH ×2 (06:56→16:52)
[2019-01-21] MEDS: INSULIN (LEVEMIR) 100 UNITS/ML UNITS SQ SCH (06:58)
--- NOTE | 2019-01-21 13:04 | DS ---
Physical Examination Vital Signs: Vital Signs Temperature 97.9 F 01/21/19 06:00 Pulse Rate 53 L 01/21/19 06:00 Respiratory Rate 18 01/21/19 06:00 Blood Pressure 118/63 01/21/19 06:00 O2 Sat by Pulse Oximetry (%) 99 01/20/19 21:00 Constitutional: Yes: Calm Cardiovascular: Yes: Regular Rate and Rhythm, S1, S2 Respiratory: Yes: CTA Bilaterally Gastrointestinal: Yes: Normal Bowel Sounds, Soft Extremities: Yes: Other (left arm upper abcess noted firm hard erthematous) Labs: CBC, BMP 01/20/19 07:13 01/20/19 07:22 Discharge Summary Reason For Visit: RECENT ONSET OF DIABETES MELLITUS Current Active Problems Diabetes mellitus, new onset (Acute) Hospital Course: Chief Complaint: came in for polydipsia and polyuria for 3 weeks History of Present Illness: The patient is a 23 year old male, with no significant PMH who presents to the emergency department with 3 weeks of weakness and feelings of dehydration. The patient reports that he has been drinking fluids more often and urinating more frequently, but has still been feeling dehydrated. He also notes that in early November, he weighed himself to be 190 lbs and yesterday he was 167 lbs, and when testing his blood glucose yesterday he was found to be at 369. The patient denies a change in appetite. Denies blurry visions, chest pain, shortness of breath, headache and dizziness. Denies fever, nausea, vomiting, diarrhea and constipation. Denies dysuria and hematuria. Denies any other symptoms. got iVF no anion gap noted seen by endocrine stared nsulin and metformin and januvia arm abscess needs I/D andwill give vancomycin one dose and oral clindamycin Condition: Guarded - Instructions Referrals: Russel Sutton MD [Staff Physician] - 1 Week Dione Recio MD [Staff Physician] - 1 Week (see PMD as new patient) Disposition: HOME - Home Medications Comprehensive Discharge Medication List: Ambulatory Orders NK [No Known Home Medication] 01/18/19
[2019-01-21] MEDS ORDERED: VANCOMYCIN 1 GRAM (PRE-DOCKED) 1,000 MG/250 ML BAG IVPB ONE (13:15)
--- NOTE | 2019-01-21 15:40 | CONSULT ---
Consult Consult Specialty:: hand and microsurgery Reason for Consultation:: abscess - History of Present Illness Chief Complaint: arm abscess History of Present Illness: 23 yo RHD male, with no significant PMH who presents to the emergency department with 3 weeks of weakness and feelings of dehydration. The patient reports that he has been drinking fluids more often and urinating more frequently, but has still been feeling dehydrated. He also notes that in early November, he weighed himself to be 190 lbs and yesterday he was 167 lbs, and when testing his blood glucose yesterday he was found to be at 369. left arm abscess. The patient denies a change in appetite. Denies blurry visions, chest pain, shortness of breath, headache and dizziness. Denies fever, nausea, vomiting, diarrhea and constipation. Denies dysuria and hematuria. Denies any other symptoms. we were called to assess. - History Source History Provided By: Patient, Medical Record Limitations to Obtaining History: No Limitations - Alcohol/Substance Use Hx Alcohol Use: No - Smoking History Smoking history: Never smoked Have you smoked in the past 12 months: No Home Medications - Allergies Allergies/Adverse Reactions: Allergies Allergy/AdvReac Type Severity Reaction Status Date / Time aspirin Allergy Verified 01/18/19 11:38 - Home Medications Home Medications: Ambulatory Orders Clindamycin [Cleocin -] 300 mg PO Q6HPO #28 capsule 01/21/19 Insulin (Levemir) [Levemir Vial] 20 units SQ AM #30 units 01/21/19 Sitagliptin Phosphate [Januvia -] 100 mg PO DAILY@0700 #30 ud MDD 1 01/21/19 metFORMIN HCL [Glucophage -] 1,000 mg PO BID@0700,1630 #60 tablet MDD 2 Family Disease History - Family Disease History Family Disease History: Diabetes: Mother Review of Systems - Review of Systems Constitutional: denies: Chills, Fever Eyes: denies: Blind Spots, Recent Change in Vision HENT: denies: Difficult Swallowing, Throat Pain Neck: denies: Pain on Movement, Tenderness Cardiovascular: denies: Chest Pain, Palpitations Respiratory: denies: Snoring, SOB, SOB on Exertion Gastrointestinal: denies: Abdominal Pain, Bloating Genitourinary: denies: Discharge, Dysuria Breasts: reports: No Symptoms Reported. denies: Pain Musculoskeletal: denies: Back Pain, Other Integumentary: denies: Bruising, Lesions, Lump Neurological: denies: Seizure, Syncope Endocrine: denies: Unexplained Weight Gain, Unexplained Weight Loss Hematology/Lymphatic: denies: Easily Bruised, Excessive Bleeding Psychiatric: denies: Anxiety, Depression Physical Exam Vital Signs: Vital Signs Temperature 97.9 F 01/21/19 06:00 Pulse Rate 53 L 01/21/19 06:00 Respiratory Rate 18 01/21/19 06:00 Blood Pressure 118/63 01/21/19 06:00 O2 Sat by Pulse Oximetry (%) 99 01/20/19 21:00 Constitutional: Yes: Well Nourished, No Distress, Calm, Poor Hygeine Eyes: Yes: EOM Intact HENT: Yes: Atraumatic, Normocephalic Neck: Yes: Supple, Trachea Midline Cardiovascular: Yes: Regular Rate and Rhythm, S1, S2 Respiratory: Yes: Regular, CTA Bilaterally Gastrointestinal: Yes: Normal Bowel Sounds, Soft. No: Tenderness ...Rectal Exam: Yes: Deferred Renal/: No: CVA Tenderness - Left, CVA Tenderness - Right Breast(s): No: Mass, Nipple Inversion Musculoskeletal: No: Joint Stiffness, Muscle Pain Extremities: Yes: Erythema (left anter axilla over deltoid) Edema: Yes Edema: LUE: 1+ (adjacent to the abscess ) Peripheral Pulses WNL: Yes Neurological: Yes: Alert, Oriented Psychiatric: Yes: Alert, Oriented Labs: CBC, BMP 01/20/19 07:13 01/20/19 07:22 Imaging - Results X-ray: Report Reviewed, Image Reviewed Problem List - Problems (1) Arm pain, left Assessment/Plan: 23yo RHD male PMH DM with arm abscess, and history, present low grade fever Antibioticss Bed side I&D of left arm abscess Discussed with patient risks, benefits and alternatives of aforementioned procedure, including but not limited to bleeding, infection, injury to adjacent structures, need for further procedures, ; alternatives include antibiotics , delayed or no surgery - risks of this include failure of nonoperative therapy , sepsis, recurrence, . Patient desires to proceed with operation - will take to OR for above. Informed consent signed for same. Thank you for the opportunity to participate in the care of this patient. Code(s): M79.602 - PAIN IN LEFT ARM (2) Abscess of arm, left Code(s): L02.414 - CUTANEOUS ABSCESS OF LEFT UPPER LIMB (3) Fever Code(s): R50.9 - FEVER, UNSPECIFIED (4) Diabetes mellitus, new onset Code(s): E11.9 - TYPE 2 DIABETES MELLITUS WITHOUT COMPLICATIONS
[2019-01-21 18:41] VITALS: BP 110/49; PULSE 53; TEMP 98.1
[2019-01-21] MEDS ORDERED: LIDOCAINE HCL 1%, 10 MG/ML (20ML VIAL) NR ONE (20:00)
--- NOTE | 2019-01-21 21:47 | PROC ---
Incision and Drainage Indication/Location: left upper arm, anterior axilla Risks and Benefits Explained: Yes Consent on Chart: Yes Betadine cleansed: Yes Anesthesia: 1% Lidocaine Blade Size: 15 Irrigated with Normal Saline: Yes Plain packing: Yes Sterile Dressing Applied: Yes - Remarks Remarks: sterile prep and drap 2CM cruciate incision of left axilla anterior abscess
== END 2019-01-21 20:45 | disposition home or self-care (01) | DRG 420 ==
LOC: JER 11:26 → JERBED 13:20 → J5S 14:42
PROVIDERS: ADMIT Student in an Organized Health Care Education/Training Program; ATTEND Student in an Organized Health Care Education/Training Program
PROC: 0J9F0ZX Drainage of Left Upper Arm Subcutaneous Tissue and Fascia, Open Approach, Diagnostic (ICD-10-PCS; principal; 2019-01-21)
DX: E11.65 Type 2 diabetes mellitus with hyperglycemia (principal); L02.414 Cutaneous abscess of left upper limb; E86.0 Dehydration; R53.1 Weakness; R63.1 Polydipsia; R35.8 Other polyuria; R63.4 Abnormal weight loss; Z68.26 Body mass index [BMI] 26.0-26.9, adult
CPT/HCPCS: 36415; 80053; 80061; 81003; 82009; 82550; 82803; 82962; 83036; 83721; 84484; 85025; 85610; 87070; 87077; 87086; 87186; 87205; 93005; 93010; 99284-25; J7030

== ENCOUNTER 2019-07-23 16:09 | Emergency (ER) | payer OTHER ==
--- NOTE | 2019-07-23 16:35 | PDOC ---
Rapid Medical Evaluation Chief Complaint: Nausea/Vomiting Time Seen by Provider: 07/23/19 16:32 Medical Evaluation: Allergies Allergy/AdvReac Type Severity Reaction Status Date / Time aspirin Allergy Verified 07/23/19 16:32 07/23/19 16:32 I have performed a brief in-person evaluation of this patient. The patient presents with a chief complaint of: n/v since since eating a vegetable salad last night. Denies diarrhea, fever. pt report went to sleep right away after eating and started vomiting in the middle of the night Pertinent physical exam findings: A&O x 3 in Nad I have ordered the following:zofran, The patient will proceed to the ED for further evaluation. Discharge Disposition - Diagnosis Nausea & vomiting Qualifiers: Vomiting type: bilious vomiting Qualified Code(s): R11.14 - Bilious vomiting - Discharge Dispostion Condition at time of disposition: Stable - Referrals - Patient Instructions - Post Discharge Activity
[2019-07-23 16:43] VITALS: BP 119/70; PULSE 86; TEMP 97.8; BMI 24.3
--- NOTE | 2019-07-23 17:36 | PDOC ---
History of Present Illness - General Chief Complaint: Nausea/Vomiting Stated Complaint: VOMITING Time Seen by Provider: 07/23/19 16:32 - History of Present Illness Initial Comments: 07/23/19 17:35 24-year-old male with a past medical history of diabetes presents for evaluation of vomiting after bad [place] food last night. Past History - Past Medical History Allergies/Adverse Reactions: Allergies Allergy/AdvReac Type Severity Reaction Status Date / Time aspirin Allergy Verified 07/23/19 16:32 Home Medications: Ambulatory Orders Clindamycin [Cleocin -] 300 mg PO Q6HPO #28 capsule 01/21/19 Insulin (Levemir) [Levemir Vial] 20 units SQ AM #30 units 01/21/19 Sitagliptin Phosphate [Januvia -] 100 mg PO DAILY@0700 #30 ud MDD 1 01/21/19 metFORMIN HCL [Glucophage -] 1,000 mg PO BID@0700,1630 #60 tablet MDD 2 Ondansetron [Zofran *Odt*] 4 mg SL TID #21 od.tablet 07/23/19 Anemia: No Asthma: No COPD: No Diabetes: Yes (UNSURE) - Psycho Social/Smoking Cessation Hx Smoking History: Never smoked Have you smoked in the past 12 months: No Information on smoking cessation initiated: No Hx Alcohol Use: No Drug/Substance Use Hx: No Review of Systems - Review of Systems ABD/GI: Yes: Nausea, Vomiting. No: Blood Streaked Bowels, Diarrhea *Physical Exam - Vital Signs Last Vital Signs Temp Pulse Resp BP Pulse Ox 97.8 F 86 17 119/70 100 07/23/19 16:32 07/23/19 16:32 07/23/19 16:32 07/23/19 16:32 07/23/19 16:32 - Physical Exam 07/23/19 17:35 GENERAL: The patient is awake, alert, and fully oriented, in no acute distress. HEAD: Normal with no signs of trauma. EYES: sclera anicteric, conjunctiva clear. ENT: Ears normal tympanic membranes normal oropharynx clear uvula midline NECK: Normal range of motion LUNGS: Breath sounds equal, clear to auscultation bilaterally. No wheezes, and no crackles. HEART: S1 and S2 without murmur, rub or gallop. ABDOMEN: Soft, nontender, normoactive bowel sounds. No guarding, no rebound. No masses. EXTREMITIES: Normal range of motion, no edema. No clubbing or cyanosis. No cords, erythema, or tenderness. NEUROLOGICAL: Cranial nerves II through XII grossly intact. PSYCH: Normal mood, normal affect. SKIN: Warm, Dry, normal turgor, no rashes or lesions noted. Medical Decision Making - Medical Decision Making 07/23/19 17:35 Zofran for nausea discussed use of Pedialyte to maintain hydration follow-up with primary care physician Discharge - Discharge Information Problems reviewed: Yes Clinical Impression/Diagnosis: Nausea & vomiting Qualifiers: Vomiting type: bilious vomiting Qualified Code(s): R11.14 - Bilious vomiting Condition: Stable Disposition: HOME - Admission No - Additional Discharge Information Prescriptions: Ondansetron [Zofran *Odt*] 4 mg SL TID #21 od.tablet - Follow up/Referral Referrals: Krysta Jacques MD [Staff Physician] - - Patient Discharge Instructions Additional Instructions: Return to the emergency room for worsening symptoms. Small sips of Pedialyte to maintain hydration uses Zofran as directed to control nausea. - Post Discharge Activity
== END 2019-07-23 17:50 | disposition home or self-care (01) ==
LOC: JERFT 16:09 → JER 16:09 → JERFT 17:50
DX: R11.14 Bilious vomiting (principal); E10.9 Type 1 diabetes mellitus without complications; Z79.4 Long term (current) use of insulin; Z79.82 Long term (current) use of aspirin
CPT/HCPCS: 99281-25

== ENCOUNTER 2019-12-19 14:58 | Emergency (ER) | payer OTHER ==
[2019-12-19] MEDS ORDERED: DIPHTH,PERTUSS(ACELL),TET 0.5 ML DISP.SYRIN IM ONE ×2 (15:05→15:14)
[2019-12-19 15:08] VITALS: BP 122/74; PULSE 66; TEMP 98.4; BMI 23.2
--- NOTE | 2019-12-19 15:08 | PDOC ---
Rapid Medical Evaluation Chief Complaint: Injury Time Seen by Provider: 12/19/19 15:00 Medical Evaluation: Allergies Allergy/AdvReac Type Severity Reaction Status Date / Time aspirin Allergy Verified 07/23/19 16:32 12/19/19 15:06 I performed a brief in-person evaluation of this patient. Pt is a 24 y/o male who presents to the ED with complaint of L dorsal foot laceration that [place] the park. He is unsure of his last tetanus booster. He is an insulin dependent diabetic. Pertinent physical exam findings: 2 cm left foot laceration, no active bleeding I have ordered the following: boostrix Patient to proceed to ED for further evaluation. Discharge Disposition - Diagnosis Laceration of left foot - Discharge Dispostion Disposition: HOME Condition at time of disposition: Stable - Referrals - Patient Instructions - Post Discharge Activity
--- NOTE | 2019-12-19 16:00 | PDOC ---
History of Present Illness - General Chief Complaint: Injury Stated Complaint: LACERATION Time Seen by Provider: 12/19/19 15:00 History Source: Patient Exam Limitations: Clinical Condition - History of Present Illness Initial Comments: 12/19/19 16:04 Patient with no significant past medical history present with complaint of laceration to top of left foot status post accidentally hitting the foot on a metal piece at home causing laceration. Patient does not recall last tetanus vaccine. Denies any other symptoms Timing/Duration: reports: just prior to arrival Past History - Medical History Allergies/Adverse Reactions: Allergies Allergy/AdvReac Type Severity Reaction Status Date / Time aspirin Allergy Verified 07/23/19 16:32 NSAIDS (Non-Steroidal Allergy Verified 12/19/19 15:08 Anti-Inflamma Home Medications: Ambulatory Orders Clindamycin [Cleocin -] 300 mg PO Q6HPO #28 capsule 01/21/19 Insulin (Levemir) [Levemir Vial] 20 units SQ AM #30 units 01/21/19 Sitagliptin Phosphate [Januvia -] 100 mg PO DAILY@0700 #30 ud MDD 1 01/21/19 metFORMIN HCL [Glucophage -] 1,000 mg PO BID@0700,1630 #60 tablet MDD 2 01/21/19 Ondansetron [Zofran *Odt*] 4 mg SL TID #21 od.tablet 07/23/19 Amox-Tr/K Cl [Augmentin - 875Mg Tablet] 1 tab PO BID #14 tablet 12/19/19 Anemia: No Asthma: No COPD: No Diabetes: Yes (IDDM) - Immunization History Immunization Up to Date: No - Psycho-Social/Smoking History Smoking History: Never smoked Have you smoked in the past 12 months: No - Substance Abuse Hx (Audit-C & DAST Scrn) How often the patient has a drink containing alcohol: Never Score: In Men: 4 or > Positive; In Women: 3 or > Positive: 0 Screen Result (Pos requires Nsg. Audit-10AR): Negative Review of Systems - Review of Systems Able to Perform ROS?: Yes Is the patient limited Pashto proficient: No Constitutional: No: Chills, Fever, Malaise HEENTM: No: Symptoms Reported, See HPI, Eye Pain, Blurred Vision, Tearing, Recent change in vision, Double Vision, Cataracts, Ear Pain, Ocular Prothesis, Ear Discharge, Nose Pain, Nose Congestion, Tinnitus, Nose Bleeding, Hearing Loss, Throat Pain, Throat Swelling, Mouth Pain, Dental Problems, Difficulty Swallowing, Mouth Swelling, Other Respiratory: No: Symptoms reported, See HPI, Cough, Orthopnea, Shortness of Breath, SOB with Exertion, SOB at Rest, Stridor, Wheezing, Productive cough, Hemoptysis, Other Cardiac (ROS): No: Symptoms Reported Musculoskeletal: Yes: Symptoms Reported, See HPI, Muscle Pain (Pain over dorsum of left foot over laceration area) Integumentary: Yes: Symptoms Reported, See HPI, Other (Laceration to top of left foot) Neurological: No: Symptoms reported, Numbness, Paresthesia, Tingling All Other Systems: Reviewed and Negative *Physical Exam - Vital Signs Last Vital Signs Temp Pulse Resp BP Pulse Ox 98.4 F 66 18 122/74 97 12/19/19 15:04 12/19/19 15:04 12/19/19 15:04 12/19/19 15:04 12/19/19 15:04 - Physical Exam 12/19/19 16:07 GENERAL: Well developed, well nourished. Awake and alert. No acute distress. PULMONARY: No evidence of respiratory distress. MUSCULOSKELETAL : Mild tenderness over dorsum of left foot over laceration area. 1.5 cm superficial linear laceration to top of left foot with minimal bleeding. SKIN: Warm and dry. Normal capillary refill. 1.5 cm superficial linear laceration to top of left foot with minimal bleeding. NEUROLOGICAL: Alert, awake, appropriate. No motor deficits in the lower extremities. Gait is normal without ataxia. PSYCHIATRIC: Cooperative. Good eye contact. Appropriate mood and affect. General Appearance: Yes: Nourished, Appropriately Dressed. No: Apparent Distress Procedures - Laceration/Wound Repair Left Anterior Foot Wound Length: to 2.5 cm Wound's Depth, Shape: superficial, linear Irrigated w/ Saline: Yes Betadine Prep: Yes Anesthesia: 1% Lidocaine Amount of Anesthetic (ccs): 2 Wound Repaired With: Sutures Suture Size/Type: 4:0, nylon Number of Sutures: 3 Layer Closure: No Sterile Dressing Applied: Yes Splint Applied: No Sling Applied: No Progress: 12/19/19 16:08 1.5 cm superficial linear laceration to top of left foot with minimal bleeding. Wound irrigated with saline and cleaned with Betadine. Wound infiltrated with 2 cc 1% lidocaine and closed with 4-0 nylon 3 interrupted sutures. Bacitracin applied to wound and wound covered adhesive bandage. Patient tolerated procedure well. Tetanus vaccine given. ED Treatment Course - Medications Given in the ED: ED Medications Discontinued Medications Generic Name Dose Route Start Last Admin Trade Name Kusum PRN Reason Stop Dose Admin Diphtheria/Tetanus/Acell Pertussis 0.5 ml 12/19/19 15:05 12/19/19 15:15 Boostrix - IM 12/19/19 15:06 0.5 ml .ONCE ONE Administration Medical Decision Making - Medical Decision Making 12/19/19 16:05 Patient with no significant past medical history present with complaint of laceration to top of left foot status post accidentally hitting the foot on a metal piece at home causing laceration. Patient does not recall last tetanus vaccine. Denies any other symptoms Exam significant for 1.5 cm superficial linear laceration to top of left foot with minimal bleeding. Wound irrigated with saline and cleaned with Betadine. Wound infiltrated with 1 cc 1% lidocaine and closed with 4-0 nylon 3 interrupted sutures. Bacitracin applied to wound and wound covered adhesive bandage. Patient tolerated procedure well. Tetanus vaccine given. Patient stable for discharge Augmentin antibiotic for infection prophylaxis with advised to apply bacitracin to wound twice a day and take Tylenol as needed for pain due to NSAIDs allergy with follow-up in 1 week for suture removal. Patient stable for discharge and left department without complication Discharge - Discharge Information Problems reviewed: Yes Clinical Impression/Diagnosis: Laceration of left foot Qualifiers: Encounter type: initial encounter Qualified Code(s): S91.312A - Laceration without foreign body, left foot, initial encounter Condition: Stable Disposition: HOME - Admission No - Additional Discharge Information Prescriptions: Amox-Tr/K Cl [Augmentin - 875Mg Tablet] 1 tab PO BID #14 tablet - Follow up/Referral - Patient Discharge Instructions Patient Printed Discharge Instructions: DI for Laceration Repair -- Simple Additional Instructions: Keep wound clean and dry for the next 24 hours. Apply bacitracin to wound twice a day. Take Tylenol as needed for pain. Take prescribed antibiotics and finish. Follow-up in 1 week for suture removal - Post Discharge Activity
== END 2019-12-19 16:45 | disposition home or self-care (01) ==
LOC: JERFT 14:58
PROC: 3E0234Z Introduction of Serum, Toxoid and Vaccine into Muscle, Percutaneous Approach (ICD-10-PCS; principal; 2019-12-19)
PROC: 0HQNXZZ Repair Left Foot Skin, External Approach (ICD-10-PCS; principal; 2019-12-19)
DX: S91.312A Laceration without foreign body, left foot, initial encounter (principal); W26.8XXA Contact with other sharp object(s), not elsewhere classified, initial encounter
CPT/HCPCS: 90715; 99283-25

== ENCOUNTER 2020-12-17 14:29 | Inpatient (IN) | payer OTHER ==
[2020-12-17] MEDS ORDERED: SODIUM CHLORIDE 1,000 ML IV SCH ×2 (15:15→16:30)
[2020-12-17 16:10] LABS: BASO % 0.2 % (0-2.0); HEMATOCRIT 57.3 % (35.4-49); HEMOGLOBIN 19.1 GM/dL (11.7-16.9); LYMPH % 22.1 % (8-40); MCH 27.1 pg (25.7-33.7); MCHC 33.4 g/dl (32.0-35.9); MEAN CELL VOLUME 81.2 fl (80-96); MONO % 3.6 % (3.8-10.2); NEUT % 74.1 % (42.8-82.8); PLATELET COUNT 315 10^3/uL (134-434); RDW 13.2 % (11.9-15.9); WHITE BLOOD COUNT 8.1 K/mm3 (4.0-10.0)
[2020-12-17 16:12] LABS: VENOUS BASE EXCESS -21.9 mmol/L (-2-2); VENOUS PCO2 33.2 mmHg (38-52)
[2020-12-17 16:20] LABS: RBC 7.05 M/mm3 (4.00-5.60)
[2020-12-17 16:22] LABS: VENOUS PH 7.016 (7.310-7.410)
[2020-12-17 16:24] LABS: CHLORIDE 99 mmol/L (98-107); SODIUM 135 mmol/L (136-145)
[2020-12-17 16:26] LABS: ANION GAP 26 MMOL/L (8-16); BLOOD UREA NITROGEN 19.3 mg/dL (7-18); CO2 9 mmol/L (21-32)
[2020-12-17] MEDS ORDERED: INSULIN REGULAR HUMAN 100 UNITS/ML *VIAL IVPUSH ONE (16:28)
[2020-12-17] MEDS ORDERED: INSULIN REGULAR HUMAN 100 UNITS/ML *VIAL* (FOR IVP) IVPUSH ONE (16:28)
[2020-12-17] MEDS ORDERED: DEXTROSE 50%-WATER - 25 GM/50 ML VIAL IVPUSH PRN (16:28)
[2020-12-17 16:29] LABS: CREATININE 1.6 mg/dL (0.55-1.3); SGOT/AST 35 U/L (15-37); SGPT/ALT 99 U/L (13-61)
[2020-12-17 16:30] LABS: BILIRUBIN,TOTAL 0.7 mg/dL (0.2-1); TOT PROT 9.1 g/dl (6.4-8.2)
[2020-12-17] MEDS ORDERED: INSULIN REGULAR 100 UNITS in SODIUM CHLORIDE 99 ML IVPB SCH (16:30)
[2020-12-17 16:31] LABS: ALK PHOS 101 U/L (45-117)
[2020-12-17 16:36] LABS: ALBUMIN 5.2 g/dl (3.4-5.0); CALCIUM 10.3 mg/dL (8.5-10.1); GLUCOSE,RANDOM 578 mg/dL (74-106)
[2020-12-17 16:55] LABS: EPI CELLS 11 /uL (0-25.1); HYALINE CASTS 0 /uL (0-3.1); URINE APPEARANCE CLEAR; URINE BACTERIA 276 /uL (0-1359); URINE BILIRUBIN NEGATIVE (NEGATIVE); URINE COLOR YELLOW; URINE GLUCOSE (UA) 3+ (NEGATIVE); URINE KETONE 4+ (NEGATIVE); URINE LEUK ESTERASE NEGATIVE (NEGATIVE); URINE NITRITE NEGATIVE (NEGATIVE); URINE PROTEIN 2+ (NEGATIVE); URINE RBC 1 /uL (0-23.9); URINE UROBILINOGEN 0.2 mg/dL (0.2-1.0); URINE WBC 46 /uL (0-25.8)
[2020-12-17] MEDS ORDERED: MAGNESIUM SULF 50% (8.12 MEQ/2 ML-1 GM VIAL) IVPB ONE (17:17)
[2020-12-17] MEDS ORDERED: SODIUM CHLORIDE 1,000 ML IV STA (17:40)
[2020-12-17] MEDS ORDERED: MAGNESIUM SULFATE IN WATER 2 GM/50 ML IVPB IVPB ONE (17:51)
[2020-12-17 20:19] LABS: BLOOD UREA NITROGEN 16.9 mg/dL (7-18)
[2020-12-17 20:24] LABS: CREATININE 1.3 mg/dL (0.55-1.3)
[2020-12-17] MEDS ORDERED: SODIUM CHLORIDE 0.45% 1,000 ML IV SCH (20:30)
[2020-12-17 20:38] LABS: CALCIUM 8.7 mg/dL (8.5-10.1)
[2020-12-17 20:59] VITALS: BMI 22.2
[2020-12-17 21:12] LABS: EPI CELLS 5 /uL (0-25.1); HYALINE CASTS 0 /uL (0-3.1); URINE APPEARANCE CLEAR; URINE BACTERIA 149 /uL (0-1359); URINE BILIRUBIN NEGATIVE (NEGATIVE); URINE COLOR YELLOW; URINE GLUCOSE (UA) 3+ (NEGATIVE); URINE KETONE 4+ (NEGATIVE); URINE LEUK ESTERASE NEGATIVE (NEGATIVE); URINE NITRITE NEGATIVE (NEGATIVE); URINE PROTEIN 1+ (NEGATIVE); URINE RBC 2 /uL (0-23.9); URINE UROBILINOGEN 0.2 mg/dL (0.2-1.0); URINE WBC 10 /uL (0-25.8)
[2020-12-17] MEDS: HEPARIN NA (PORCINE) 5,000 UNITS/ML 1ML VIAL SQ SCH (21:23)
[2020-12-17 21:54] LABS: VENOUS BASE EXCESS -20.6 mmol/L (-2-2); VENOUS O2 SATURATION 74.7 % (70-80); VENOUS PCO2 30.8 mmHg (38-52)
[2020-12-17] MEDS ORDERED: CHLORHEXIDINE GLUCONATE 4% CLEANSER FOR DECOLONIZATION TP SCH (22:00)
[2020-12-17] MEDS ORDERED: MUPIROCIN 2% TOPICAL OINTMENT FOR DECOLONIZATION NS SCH (22:00)
[2020-12-17 22:02] LABS: VENOUS PH 7.06 (7.310-7.410)
[2020-12-17 22:32] LABS: LACTIC ACID 2.2 mmol/L (0.4-2.0)
[2020-12-17] MEDS: Insulin (LOG) Aspart 100 UNITS/ML VIAL SQ SCH (22:36)
[2020-12-17] MEDS ORDERED: DEXTROSE 5%-0.45% SALINE 1,000 ML IV SCH (23:00)
[2020-12-18] MEDS: Insulin (LOG) Aspart 100 UNITS/ML VIAL SQ SCH ×3 (00:10→06:13)
[2020-12-18 02:54] LABS: BLOOD UREA NITROGEN 8.6 mg/dL (7-18)
[2020-12-18] MEDS: HEPARIN NA (PORCINE) 5,000 UNITS/ML 1ML VIAL SQ SCH ×2 (06:14→14:52)
[2020-12-18] MEDS ORDERED: INSULIN (LEVEMIR) 100 UNITS/ML UNITS SQ SCH (07:00)
[2020-12-18 07:09] LABS: BASO % 0.2 % (0-2.0); HEMOGLOBIN 16.1 GM/dL (11.7-16.9); LYMPH % 32.6 % (8-40); MCH 27.3 pg (25.7-33.7); MCHC 34.2 g/dl (32.0-35.9); MEAN CELL VOLUME 79.8 fl (80-96); MEAN PLT VOLUME 8.1 fl (7.5-11.1); MONO % 11.3 % (3.8-10.2); NEUT % 55.9 % (42.8-82.8); PLATELET COUNT 229 10^3/uL (134-434); RBC 5.88 M/mm3 (4.00-5.60); RDW 12.9 % (11.9-15.9); WHITE BLOOD COUNT 5.9 K/mm3 (4.0-10.0)
[2020-12-18 07:15] LABS: INR 0.95 (0.83-1.09); PROTHROMBIN TIME (PATIENT) 11.5 SEC (9.7-13.0)
[2020-12-18 07:18] LABS: ACTIVATED PTT 21.9 SECONDS (25.2-36.5)
[2020-12-18 07:25] LABS: CALCIUM 8.2 mg/dL (8.5-10.1)
[2020-12-18 07:26] LABS: BLOOD UREA NITROGEN 7.8 mg/dL (7-18)
[2020-12-18 07:30] LABS: PHOSPHOROUS 2.8 mg/dL (2.5-4.9)
[2020-12-18] MEDS: INSULIN SLIDING SCALE (NOVOLOG) 1 VIAL SQ SCH ×2 (11:00→16:44)
[2020-12-18 12:08] LABS: CALCIUM 8.2 mg/dL (8.5-10.1)
[2020-12-18 12:10] LABS: BLOOD UREA NITROGEN 9.1 mg/dL (7-18)
[2020-12-18] MEDS ORDERED: POTASSIUM CHLORIDE TABS 20 MEQ TABLET.ER (FP) PO ONE (13:20)
[2020-12-18 14:52] VITALS: BP 113/65; PULSE 77; TEMP 97.8
== END 2020-12-18 17:05 | disposition home or self-care (01) | DRG 420 ==
LOC: JER 14:29 → JERBED 16:30 → JICU 20:36
PROVIDERS: ADMIT Internal Medicine Pulmonary Disease; ATTEND Internal Medicine Pulmonary Disease
DX: E11.10 Type 2 diabetes mellitus with ketoacidosis without coma (principal); R11.2 Nausea with vomiting, unspecified; N17.9 Acute kidney failure, unspecified; Z79.4 Long term (current) use of insulin
CPT/HCPCS: 36415; 71045-TC-FY; 80048; 80053; 81003; 82010; 82803; 82962; 83036; 83605; 83735; 84100; 84443; 85025; 85610; 85730; 87040; 87077; 87086; 93005; 93010; 99285-25; C9803; J1644; U0003; U0005

== ENCOUNTER 2021-05-09 01:12 | Emergency (ER) | payer OTHER ==
[2021-05-09] MEDS ORDERED: LACTATED RINGERS SOLUTION 1000 ML INFUS.BAG IV ONE (01:41)
[2021-05-09 01:52] VITALS: TEMP 97.6; BMI 20.9
[2021-05-09 02:04] LABS: VENOUS BASE EXCESS -4.8 mmol/L (-2-2); VENOUS O2 SATURATION 42.9 % (70-80); VENOUS PCO2 47.5 mmHg (38-52); VENOUS PH 7.287 (7.310-7.410)
[2021-05-09 02:06] LABS: BASO % 1.4 % (0-2.0); EOS % 1.8 % (0-4.5); HEMATOCRIT 48.5 % (35.4-49); HEMOGLOBIN 16.6 GM/dL (11.7-16.9); LYMPH % 36.6 % (8-40); MCH 27.4 pg (25.7-33.7); MCHC 34.2 g/dl (32.0-35.9); MEAN CELL VOLUME 80.2 fl (80-96); MEAN PLT VOLUME 8.6 fl (7.5-11.1); MONO % 8.8 % (3.8-10.2); NEUT % 51.4 % (42.8-82.8); PLATELET COUNT 236 10^3/uL (134-434); RBC 6.05 M/mm3 (4.00-5.60); RDW 12.9 % (11.9-15.9); WHITE BLOOD COUNT 4.7 K/mm3 (4.0-10.0)
[2021-05-09 02:54] LABS: CHLORIDE 95 mmol/L (98-107); SODIUM 133 mmol/L (136-145)
[2021-05-09 02:56] LABS: CALCIUM 9.4 mg/dL (8.5-10.1)
[2021-05-09 02:57] LABS: ALBUMIN 4.3 g/dl (3.4-5.0); ANION GAP 13 MMOL/L (8-16); BLOOD UREA NITROGEN 15.4 mg/dL (7-18); CO2 25 mmol/L (21-32)
[2021-05-09 03:00] LABS: CREATININE 1.1 mg/dL (0.55-1.3); SGOT/AST 46 U/L (15-37); SGPT/ALT 71 U/L (13-61)
[2021-05-09 03:01] LABS: BILIRUBIN,TOTAL 1.1 mg/dL (0.2-1); TOT PROT 7.7 g/dl (6.4-8.2)
[2021-05-09 03:02] LABS: ALK PHOS 88 U/L (45-117)
[2021-05-09] MEDS ORDERED: SODIUM CHLORIDE 0.9% 500 ML INFUS.BAG IV ONE (03:21)
[2021-05-09 03:47] LABS: GLUCOSE,RANDOM 529 mg/dL (74-106)
[2021-05-09] MEDS ORDERED: INSULIN REGULAR HUMAN 100 UNITS/ML *VIAL SQ ONE (03:51)
[2021-05-09 06:08] LABS: CHLORIDE 105 mmol/L (98-107); SODIUM 138 mmol/L (136-145)
[2021-05-09 06:09] LABS: ANION GAP 9 MMOL/L (8-16); CO2 23 mmol/L (21-32)
[2021-05-09 06:10] LABS: VENOUS BASE EXCESS -5.5 mmol/L (-2-2); VENOUS O2 SATURATION 92.5 % (70-80); VENOUS PCO2 38.7 mmHg (38-52); VENOUS PH 7.329 (7.310-7.410)
[2021-05-09 06:13] LABS: CREATININE 0.8 mg/dL (0.55-1.3)
[2021-05-09 06:38] LABS: CALCIUM 7.3 mg/dL (8.5-10.1); GLUCOSE,RANDOM 422 mg/dL (74-106)
[2021-05-09] MEDS ORDERED: INSULIN (NOVOLOG) ASPART 100 UNITS/ML 10ML VIAL SQ ONE (06:51)
[2021-05-09] MEDS ORDERED: POTASSIUM CHLORIDE TABS 20 MEQ TABLET.ER (FP) PO ONE ×2 (06:51→07:34)
[2021-05-09 08:43] VITALS: BP 115/76; PULSE 59
== END 2021-05-09 08:43 | disposition home or self-care (01) ==
LOC: JER 01:12
DX: E11.65 Type 2 diabetes mellitus with hyperglycemia (principal)
CPT/HCPCS: 36415; 80048; 80053; 82010; 82803; 82962; 85025; 99283-25; C9803; U0003; U0005

== ENCOUNTER 2023-01-26 14:01 | Emergency (ER) | payer OTHER ==
[2023-01-26 14:14] VITALS: BP 112/64; PULSE 89; RESP 18; TEMP 97.9; BMI 23.6
[2023-01-26] MEDS ORDERED: SODIUM CHLORIDE 0.9% 500 ML INFUS.BAG IV ONE ×2 (15:03)
[2023-01-26 15:55] LABS: VENOUS BASE EXCESS -0.6 mmol/L (-2-2); VENOUS O2 SATURATION 76.9 % (70-80); VENOUS PCO2 46.7 mmHg (38-52); VENOUS PH 7.355 (7.310-7.410)
[2023-01-26 15:57] LABS: BASO % 0.5 % (0-2.0); EOS % 2.8 % (0-4.5); HEMATOCRIT 47.9 % (35.4-49); HEMOGLOBIN 16.3 GM/dL (11.7-16.9); LYMPH % 47.6 % (8-40); MCH 26.4 pg (25.7-33.7); MCHC 34.1 g/dl (32.0-35.9); MEAN CELL VOLUME 77.3 fl (80-96); MEAN PLT VOLUME 8.7 fl (7.5-11.1); MONO % 9.3 % (3.8-10.2); NEUT % 39.8 % (42.8-82.8); PLATELET COUNT 279 10^3/uL (134-434); RBC 6.19 M/mm3 (4.00-5.60); RDW 12.8 % (11.9-15.9); WHITE BLOOD COUNT 4.2 K/mm3 (4.0-10.0)
[2023-01-26 16:19] LABS: POTASSIUM 4.1 mmol/L (3.5-5.1)
[2023-01-26 16:21] LABS: BLOOD UREA NITROGEN 17.3 mg/dL (7-18)
[2023-01-26 16:22] LABS: ALBUMIN 4.2 g/dl (3.4-5.0); CALCIUM 9.3 mg/dL (8.5-10.1)
[2023-01-26 16:23] LABS: MAGNESIUM 2.2 mg/dL (1.8-2.4)
[2023-01-26 16:26] LABS: CREATININE 0.8 mg/dL (0.55-1.3)
[2023-01-26 16:27] LABS: TOT PROT 7.4 g/dl (6.4-8.2)
[2023-01-26 16:28] LABS: BILIRUBIN,TOTAL 0.6 mg/dL (0.2-1)
== END 2023-01-26 17:08 | disposition home or self-care (01) ==
LOC: JER 14:01
DX: E10.65 Type 1 diabetes mellitus with hyperglycemia (principal); R53.83 Other fatigue; R68.2 Dry mouth, unspecified; R63.1 Polydipsia
CPT/HCPCS: 36415; 80053; 82010; 82803; 82962; 83735; 85025; 93005; 93010; 99284-25

== ENCOUNTER 2023-10-25 02:17 | Emergency (ER) | payer OTHER ==
[2023-10-25 02:21] VITALS: TEMP 97.7; BMI 24.3
[2023-10-25] MEDS: SODIUM CHLORIDE 0.9% 500 ML INFUS.BAG IV ONE ×2 (02:38)
[2023-10-25 02:59] LABS: VENOUS BASE EXCESS -2.1 mmol/L (-2-2); VENOUS O2 SATURATION 89.7 % (70-80); VENOUS PCO2 43.8 mmHg (38-52); VENOUS PH 7.349 (7.310-7.410)
[2023-10-25 03:00] LABS: BASO % 0.8 % (0-2.0); EOS % 3.2 % (0-4.5); HEMATOCRIT 41.2 % (35.4-49); HEMOGLOBIN 14.2 GM/dL (11.7-16.9); LYMPH % 44.5 % (8-40); MCH 27.6 pg (25.7-33.7); MCHC 34.5 g/dl (32.0-35.9); MEAN CELL VOLUME 80.1 fl (80-96); MEAN PLT VOLUME 8.8 fl (7.5-11.1); MONO % 7.3 % (3.8-10.2); NEUT % 44.2 % (42.8-82.8); PLATELET COUNT 244 10^3/uL (134-434); RBC 5.15 M/mm3 (4.00-5.60); RDW 12.7 % (11.9-15.9)
[2023-10-25 03:05] LABS: INR 0.88 (0.83-1.09)
[2023-10-25 03:08] LABS: ACTIVATED PTT 28.6 SECONDS (25.2-36.5)
[2023-10-25 03:17] LABS: CHLORIDE 99 mmol/L (98-107); POTASSIUM 4.4 mmol/L (3.5-5.1); SODIUM 133 mmol/L (136-145)
[2023-10-25 03:20] LABS: ALBUMIN 3.3 g/dl (3.4-5.0); ANION GAP 10 mmol/L (4-13); CALCIUM 8.4 mg/dL (8.5-10.1); CO2 24 mmol/L (21-32); MAGNESIUM 1.9 mg/dL (1.8-2.4)
[2023-10-25 03:23] LABS: CREATININE 1.1 mg/dL (0.55-1.3); SGOT/AST 34 U/L (15-37); SGPT/ALT 65 U/L (13-61)
[2023-10-25 03:25] LABS: BILIRUBIN,TOTAL 0.5 mg/dL (0.2-1); TOT PROT 6.4 g/dl (6.4-8.2)
[2023-10-25 03:26] LABS: ALK PHOS 75 U/L (45-117)
[2023-10-25 03:29] LABS: GLUCOSE,RANDOM 627 mg/dL (74-106)
[2023-10-25] MEDS ORDERED: INSULIN REGULAR HUMAN 100 UNITS/ML *VIAL ONE (04:43)
[2023-10-25] MEDS: INSULIN REGULAR HUMAN 100 UNITS/ML *VIAL IVPUSH ONE (04:46)
[2023-10-25 05:10] LABS: EPI CELLS 2 /uL (0-25.1); HYALINE CASTS 0 /uL (0-3.1); PH,URINE 5.5 (5.0-8.0); URINE APPEARANCE CLEAR; URINE BACTERIA 1050 /uL (0-1359); URINE BILIRUBIN NEGATIVE (NEGATIVE); URINE COLOR YELLOW; URINE GLUCOSE (UA) 3+ (NEGATIVE); URINE KETONE NEGATIVE (NEGATIVE); URINE LEUK ESTERASE 1+ (NEGATIVE); URINE NITRITE NEGATIVE (NEGATIVE); URINE PROTEIN NEGATIVE (NEGATIVE); URINE RBC 4 /uL (0-23.9); URINE UROBILINOGEN 0.2 mg/dL (0.2-1.0); URINE WBC 205 /uL (0-25.8)
[2023-10-25 05:37] VITALS: BP 117/63; PULSE 69; RESP 17
[2023-10-25] MEDS ORDERED: CEPHALEXIN MONOHYDRATE 500 MG CAPSULE (UD) ONE (05:54)
[2023-10-25] MEDS: CEPHALEXIN MONOHYDRATE 500 MG CAPSULE (UD) PO ONE (05:56)
== END 2023-10-25 05:58 | disposition home or self-care (01) ==
LOC: JER 02:17
PROC: 3E030GC Introduction of Other Therapeutic Substance into Peripheral Vein, Open Approach (ICD-10-PCS; principal; 2023-10-25)
DX: E10.65 Type 1 diabetes mellitus with hyperglycemia (principal); Z79.4 Long term (current) use of insulin; N39.0 Urinary tract infection, site not specified; Z91.148 Patient's other noncompliance with medication regimen for other reason
CPT/HCPCS: 36415; 80053; 81003; 82010; 82803; 82962; 83036; 83690; 83735; 85025; 85610; 85730; 93005; 93010; 99284-25

== ENCOUNTER 2023-12-29 16:57 | Emergency (ER) | payer OTHER ==
[2023-12-29] MEDS: INSULIN REGULAR HUMAN 100 UNITS/ML *VIAL SQ ONE (17:35)
[2023-12-29] MEDS ORDERED: INSULIN (NOVOLOG) ASPART 100 UNITS/ML 10ML VIAL ONE (17:36)
[2023-12-29] MEDS: INSULIN (NOVOLOG) ASPART 100 UNITS/ML 10ML VIAL SQ ONE (17:37)
[2023-12-29] MEDS ORDERED: INSULIN REGULAR HUMAN 100 UNITS/ML *VIAL ONE (17:42)
[2023-12-29] MEDS ORDERED: INSULIN (NOVOLOG) ASPART 100 UNITS/ML 10ML VIAL SQ ONE (17:49)
[2023-12-29 19:11] VITALS: BP 122/74; PULSE 76; RESP 18; TEMP 98; BMI 25.9
== END 2023-12-29 19:11 | disposition home or self-care (01) ==
LOC: FER 16:57
PROC: 3E013VG Introduction of Insulin into Subcutaneous Tissue, Percutaneous Approach (ICD-10-PCS; principal; 2023-12-29)
PROC: 3E013VG Introduction of Insulin into Subcutaneous Tissue, Percutaneous Approach (ICD-10-PCS; 2023-12-29)
DX: E10.65 Type 1 diabetes mellitus with hyperglycemia (principal)
CPT/HCPCS: 82962; 99284-25

== ENCOUNTER 2024-02-14 13:23 | Emergency (ER) | payer OTHER ==
[2024-02-14 13:28] VITALS: BP 102/66; PULSE 95; RESP 18; TEMP 98.3; BMI 22.9
[2024-02-14 14:13] LABS: VENOUS BASE EXCESS 3.3 mmol/L (-2-2); VENOUS O2 SATURATION 85.9 % (70-80); VENOUS PCO2 44.9 mmHg (38-52); VENOUS PH 7.421 (7.310-7.410)
[2024-02-14 14:14] LABS: BASO % 0.5 % (0-2.0); EOS % 1.4 % (0-4.5); HEMATOCRIT 48.8 % (35.4-49); HEMOGLOBIN 16.9 GM/dL (11.7-16.9); LYMPH % 31.9 % (8-40); MCHC 34.7 g/dl (32.0-35.9); MEAN CELL VOLUME 77.7 fl (80-96); MEAN PLT VOLUME 8.6 fl (7.5-11.1); MONO % 6.7 % (3.8-10.2); NEUT % 59.5 % (42.8-82.8); PLATELET COUNT 250 10^3/uL (134-434); RBC 6.28 M/mm3 (4.00-5.60); RDW 12.7 % (11.9-15.9); WHITE BLOOD COUNT 4.8 K/mm3 (4.0-10.0)
[2024-02-14 14:39] LABS: POTASSIUM 5.8 mmol/L (3.5-5.1)
[2024-02-14 14:42] LABS: ALBUMIN 4.1 g/dl (3.4-5.0); BLOOD UREA NITROGEN 14.6 mg/dL (7-18); CALCIUM 9.8 mg/dL (8.5-10.1); MAGNESIUM 2.1 mg/dL (1.8-2.4)
[2024-02-14] MEDS: LACTATED RINGERS SOLUTION 1000 ML INFUS.BAG IV ONE ×2 (14:43→15:09)
[2024-02-14 14:46] LABS: BILIRUBIN,TOTAL 1.1 mg/dL (0.2-1); CREATININE 0.7 mg/dL (0.55-1.3)
[2024-02-14 14:48] LABS: TOT PROT 7.8 g/dl (6.4-8.2)
[2024-02-14] MEDS ORDERED: INSULIN ASPART SLIDING SCALE (NOVOLOG) 1 VIAL SQ ONE (15:15)
[2024-02-14] MEDS: INSULIN (NOVOLOG) ASPART 100 UNITS/ML 10ML VIAL SQ ONE (15:19)
== END 2024-02-14 15:30 | disposition home or self-care (01) ==
LOC: JER 13:23
PROC: 3E013VG Introduction of Insulin into Subcutaneous Tissue, Percutaneous Approach (ICD-10-PCS; principal; 2024-02-14)
DX: E10.65 Type 1 diabetes mellitus with hyperglycemia (principal); R63.1 Polydipsia; R35.89 Other polyuria; Z79.4 Long term (current) use of insulin
CPT/HCPCS: 36415; 80053; 82010; 82803; 83605; 83735; 85025; 99284-25

== ENCOUNTER 2024-08-14 12:54 | Emergency (ER) | payer OTHER ==
[2024-08-14 13:01] VITALS: BP 121/76; PULSE 60; RESP 18; TEMP 98.8; BMI 24.1
[2024-08-14] MEDS: LACTATED RINGERS SOLUTION 1000 ML INFUS.BAG IV ONE (14:25)
[2024-08-14 14:33] LABS: VENOUS BASE EXCESS -0.6 mmol/L (-2-2); VENOUS O2 SATURATION 54.6 % (70-80); VENOUS PCO2 49.7 mmHg (38-52); VENOUS PH 7.336 (7.310-7.410)
[2024-08-14 14:33] LABS: BASO % 0.5 % (0-2.0); EOS % 1.8 % (0-4.5); HEMATOCRIT 46.3 % (35.4-49); HEMOGLOBIN 15.7 GM/dL (11.7-16.9); LYMPH % 26.6 % (8-40); MCH 26.6 pg (25.7-33.7); MCHC 33.8 g/dl (32.0-35.9); MEAN CELL VOLUME 78.5 fl (80-96); MEAN PLT VOLUME 8.7 fl (7.5-11.1); MONO % 6.8 % (3.8-10.2); NEUT % 64.3 % (42.8-82.8); PLATELET COUNT 261 10^3/uL (134-434); RDW 12.6 % (11.9-15.9); WHITE BLOOD COUNT 4.4 K/mm3 (4.0-10.0)
[2024-08-14 14:35] LABS: PH,URINE 5.5 (5.0-8.0); URINE APPEARANCE CLEAR; URINE BILIRUBIN NEGATIVE (NEGATIVE); URINE COLOR YELLOW; URINE GLUCOSE (UA) 3+ (NEGATIVE); URINE KETONE 1+ (NEGATIVE); URINE LEUK ESTERASE NEGATIVE (NEGATIVE); URINE NITRITE NEGATIVE (NEGATIVE); URINE PROTEIN NEGATIVE (NEGATIVE); URINE UROBILINOGEN 0.2 mg/dL (0.2-1.0)
[2024-08-14 14:51] LABS: POTASSIUM 4.4 mmol/L (3.5-5.1)
[2024-08-14 14:54] LABS: CALCIUM 9.7 mg/dL (8.5-10.1)
[2024-08-14 14:58] LABS: BILIRUBIN,TOTAL 1.2 mg/dL (0.2-1); TOT PROT 7.2 g/dl (6.4-8.2)
[2024-08-14 15:04] LABS: LACTIC ACID 3.3 mmol/L (0.4-2.0)
[2024-08-14] MEDS ORDERED: INSULIN ASPART SLIDING SCALE (NOVOLOG) 1 VIAL SQ ONE (16:08)
[2024-08-14] MEDS: INSULIN (NOVOLOG) ASPART 100 UNITS/ML 10ML VIAL SQ ONE (16:19)
== END 2024-08-14 16:57 | disposition home or self-care (01) ==
LOC: JER 12:54
DX: E10.65 Type 1 diabetes mellitus with hyperglycemia (principal); Z20.822 Contact with and (suspected) exposure to COVID-19
CPT/HCPCS: 0241U-QW; 36415; 71045-TC-FY; 80053; 81003; 82010; 82803; 82962; 83036; 83605; 83735; 85025; 99284-25